=== PATIENT | male | born 1945 | race Caucasian/White ===

== ENCOUNTER → 2018-07-30 | Outpatient (CLI) | payer MEDICARE, OTHER | END | disposition home or self-care (01) | LOC: CFH 07:13 | DX: Z87.891 Personal history of nicotine dependence (principal) | CPT/HCPCS: 76706 ==

== ENCOUNTER 2019-07-22 04:06 | Inpatient (IN) | payer MEDICARE, OTHER ==
[~2019-07-22] VITALS: Ht 180.3 cm; Wt 54.9 kg
[2019-07-22] MEDS ORDERED: ONDANSETRON 2MG/ML, 2ML ONE (05:02)
[2019-07-22] MEDS ORDERED: FAMOTIDINE 20 MG/2 ML ONE (05:03)
[2019-07-22] MEDS ORDERED: MORPHINE SULFATE 4 MG/ML, 1ML ONE ×2 (05:03→06:13)
[2019-07-22] MEDS: MORPHINE SULFATE 4 MG/ML, 1ML IVPush PRN ×2 (05:16→06:21)
[2019-07-22] MEDS ORDERED: ONDANSETRON 2MG/ML, 2ML IVPush ONE (05:30)
[2019-07-22] MEDS ORDERED: FAMOTIDINE 20 MG/2 ML IV ONE (05:30)
[2019-07-22] MEDS ORDERED: SODIUM CHLORIDE FLUSH 10ML SYR IVF ONE (05:30)
[2019-07-22 05:37] LABS: MEAN CORPUSCULAR HEMOGLOBIN 31.1 pg (27.5-34.5); MEAN CORPUSCULAR HGB CONC 33.2 g/dL (33.2-36.2); MEAN CORPUSCULAR VOLUME 93.5 fL (81-97); MEAN PLATELET VOLUME 8.1 fL (7.4-10.4); PLATELET COUNT 320 x10^3/uL (130-400); RED BLOOD COUNT 5.85 x10^6/uL (4.38-5.82); RED CELL DISTRIBUTION WIDTH 12.5 % (9.4-14.8)
[2019-07-22 05:42] LABS: ALANINE AMINOTRANSFERASE 43 U/L (12-78); ALBUMIN 3.8 g/dL (3.4-5.0); ANION GAP 9 mmol/L (5-15); CALCIUM 9.3 mg/dL (8.5-10.1); CHLORIDE 109 mmol/L (98-107); CREATININE 1.42 mg/dL (0.7-1.3)
[2019-07-22 05:47] LABS: ALKALINE PHOSPHATASE 76 U/L (45-117); BILIRUBIN,TOTAL 0.7 mg/dL (0.2-1.0); TOTAL PROTEIN 7.8 g/dL (6.4-8.2); TROPONIN I < 0.015 ng/mL (0.000-0.045)
--- NOTE | 2019-07-22 06:22 | NUR ---
PT HARD OF HEARING, PT FORGOT HEARING AIDS. PT RESTING IN BED WITH AT PT SIDE.
[2019-07-22] MEDS ORDERED: OMNIPAQUE 350 MG/ML, 100ML BOTTLE ONE (06:25)
[2019-07-22] MEDS ORDERED: HYDROmorphone 1 MG/ML, 1ML INJ IVPush PRN (06:30)
[2019-07-22] MEDS ORDERED: SODIUM CHLORIDE 0.9% 1,000ML IVBOLUS ONE ×2 (06:30→07:30)
[2019-07-22] MEDS ORDERED: PANT40TA5 PO (06:32)
[2019-07-22] MEDS ORDERED: HYDROmorphone 1 MG/ML, 1ML INJ ONE (06:35)
[2019-07-22] MEDS ORDERED: LORazepam 2 MG/ML, 1ML ONE (06:35)
[2019-07-22] MEDS ORDERED: LORazepam 2 MG/ML, 1ML IVPush ONE (07:00)
[2019-07-22] MEDS ORDERED: HYDROmorphone 1 MG/ML, 1ML INJ IV ONE (07:00)
--- NOTE | 2019-07-22 07:05 | NUR ---
LATE ENTRY FOR 0645 RECEIVED BEDSIDE REPORT FROM JON DAVID. PT SLEEPING ON [facility]. [place]. BEDSIDE. VSS.
[2019-07-22] MEDS ORDERED: SODIUM CHLORIDE 0.9% 1,000 ML IV SCH (07:42)
[2019-07-22] MEDS ORDERED: THIAMINE 200 MG in SODIUM CHLORIDE 0.9% 50 ML IV ONE (08:00)
[2019-07-22 08:19] LABS: CHOL/HDL RATIO 4.6; LDL/HDL RATIO 3.1 (0.5-3.0)
--- NOTE | 2019-07-22 08:20 | NUR ---
LATE ENTRY 0810 PT TAKEN TO MRI.
--- NOTE | 2019-07-22 08:59 | NUR ---
Break RN: Pt back from MRI
--- NOTE | 2019-07-22 09:26 | NUR ---
PT RESTING ON [facility]. IVF INFUSING AT THIS TIME. WILL CALL PRIMARY RN FOR REPORT, ATTEMPT #2
--- NOTE | 2019-07-22 09:39 | NUR ---
REPORT TO JON SHEA. ALL QUESTIONS ANSWERED.
--- NOTE | 2019-07-22 09:44 | NUR ---
PT TRANSFERRED TO FLOOR. PT LEFT WITH ALL PERSONAL BELONGINGS.
[2019-07-22 09:58] VITALS: BP 163/108
[2019-07-22] MEDS ORDERED: POTASSIUM CHLORIDE 20 MEQ, MAGNESIUM SULFATE 1 GM, MVI ADULT 10 ML, THIAMINE 200 MG, FO... IV SCH (10:00)
[2019-07-22] MEDS: HYDROmorphone 2 MG/ML, 1ML IVPush PRN ×5 (10:13→23:43)
[2019-07-22 10:50] VITALS: BP 154/105
[2019-07-22] MEDS ORDERED: PHARMACY MAY ADJ FOR RENAL FX MC PRN (11:30)
[2019-07-22 12:08] VITALS: BP 141/101
[2019-07-22] MEDS: PIPERACILLIN/TAZO/PMX 3.375GM 50 ML IV SCH ×2 (12:19→18:11)
[2019-07-22] MEDS ORDERED: LACTATED RINGERS 1,000 ML IVBOLUS ONE (12:30)
[2019-07-22] MEDS ORDERED: LACTATED RINGERS 1,000 ML IV SCH (12:30)
[2019-07-22] MEDS ORDERED: PROPOFOL 10 MG/ML, 100ML IV ONE (15:59)
[2019-07-22] MEDS ORDERED: ETOMIDATE 40 MG/20 ML ONE (15:59)
[2019-07-22] MEDS ORDERED: SUCCINYLCHOLINE 20 MG/ML, 10ML ONE (15:59)
[2019-07-22 16:26] LABS: ANION GAP 11 mmol/L (5-15); CALCIUM 8.1 mg/dL (8.5-10.1); CHLORIDE 114 mmol/L (98-107); CREATININE 1.52 mg/dL (0.7-1.3)
[2019-07-22 17:28] LABS: MEAN CORPUSCULAR HEMOGLOBIN 31.6 pg (27.5-34.5); MEAN CORPUSCULAR VOLUME 93.1 fL (81-97); MEAN PLATELET VOLUME 7.7 fL (7.4-10.4); PLATELET COUNT 243 x10^3/uL (130-400); RED BLOOD COUNT 6.24 x10^6/uL (4.38-5.82); RED CELL DISTRIBUTION WIDTH 12.9 % (9.4-14.8)
[2019-07-22 17:31] LABS: MD YES
[2019-07-22 20:01] VITALS: BP 132/97
[2019-07-22] MEDS: ONDANSETRON 2MG/ML, 2ML IVPush PRN (20:45)
[2019-07-22 20:58] LABS: BAND#(MANUAL) 5.62 x10^3/uL; BANDS%(MANUAL) 48 % (0-7); LYMPH#(MANUAL) 0.35 x10^3/uL (1-3.4); LYMPHS% (MANUAL) 3 % (22-44); METAMYELOCYTES# (MANUAL) 0.12 x10^3/uL (0-0); METAMYELOCYTES% (MANUAL) 1 % (0-1); MONOS#(MANUAL) 0.23 x10^3/uL (0.3-2.7); MONOS% (MANUAL) 2 % (2-9); SEG#(MANUAL) 5.38 x10^3/uL (1.8-6.8); SEGS% (MANUAL) 46 % (42-75)
[2019-07-22 20:59] LABS: <PLATELET ESTIMATE> ADEQUATE; <PLT MORPHOLOGY> NORMAL PLT MORPH; <RBC MORPHOLOGY> NORMAL
[2019-07-22] MEDS: SODIUM BICARBONATE 8.4% 150 MEQ in DEXTROSE 5% 1,000 ML IV SCH (21:35)
[2019-07-23] MEDS: PIPERACILLIN/TAZO/PMX 3.375GM 50 ML IV SCH ×4 (00:11→18:00)
[2019-07-23] MEDS: SODIUM BICARBONATE 8.4% 150 MEQ in DEXTROSE 5% 1,000 ML IV SCH ×4 (03:58→21:41)
[2019-07-23] MEDS: HYDROmorphone 2 MG/ML, 1ML IVPush PRN ×6 (04:06→21:33)
[2019-07-23 04:32] LABS: MEAN CORPUSCULAR HEMOGLOBIN 31.3 pg (27.5-34.5); MEAN CORPUSCULAR HGB CONC 32.9 g/dL (33.2-36.2); MEAN PLATELET VOLUME 8.3 fL (7.4-10.4); PLATELET COUNT 210 x10^3/uL (130-400); RED BLOOD COUNT 5.93 x10^6/uL (4.38-5.82); RED CELL DISTRIBUTION WIDTH 12.8 % (9.4-14.8)
[2019-07-23 04:44] LABS: ALANINE AMINOTRANSFERASE 49 U/L (12-78); ALBUMIN 2.3 g/dL (3.4-5.0); ANION GAP 8 mmol/L (5-15); CHLORIDE 112 mmol/L (98-107); CREATININE 1.64 mg/dL (0.7-1.3)
[2019-07-23 04:48] LABS: ALKALINE PHOSPHATASE 50 U/L (45-117); BILIRUBIN,TOTAL 0.6 mg/dL (0.2-1.0); TOTAL PROTEIN 5.6 g/dL (6.4-8.2)
[2019-07-23 05:00] VITALS: BP 126/93
[2019-07-23 05:14] LABS: MD YES
[2019-07-23 05:17] LABS: <PLATELET ESTIMATE> ADEQUATE; <PLT MORPHOLOGY> NORMAL PLT MORPH; <RBC MORPHOLOGY> NORMAL; BAND#(MANUAL) 3.54 x10^3/uL; BANDS%(MANUAL) 35 % (0-7); LYMPH#(MANUAL) 1.01 x10^3/uL (1-3.4); LYMPHS% (MANUAL) 10 % (22-44); MONOS#(MANUAL) 0.81 x10^3/uL (0.3-2.7); MONOS% (MANUAL) 8 % (2-9); SEG#(MANUAL) 4.75 x10^3/uL (1.8-6.8); SEGS% (MANUAL) 47 % (42-75)
[2019-07-23] MEDS ORDERED: REGULAR INSULIN 100 UNITS in SODIUM CHLORIDE 0.9% 99 ML IV PRN (07:00)
[2019-07-23] MEDS: PANTOPRAZOLE 40 MG IV IVPush SCH (08:44)
[2019-07-23] MEDS ORDERED: SODIUM PHOSPHATE 20 MMOL in SODIUM CHLORIDE 0.9% 500 ML IV ONE (09:30)
[2019-07-23] MEDS ORDERED: LACTATED RINGERS 1,000 ML IV SCH (12:30)
[2019-07-23] MEDS ORDERED: LACTATED RINGERS 1,000 ML IVBOLUS ONE (13:30)
[2019-07-23] MEDS: HEPARIN 5,000 UNITS/ML, 1ML SQ SCH ×2 (13:39→21:37)
[2019-07-23] MEDS ORDERED: FUROSEMIDE 20 MG/2 ML IV ONE (17:30)
[2019-07-24] MEDS: PIPERACILLIN/TAZO/PMX 3.375GM 50 ML IV SCH ×3 (00:06→12:05)
[2019-07-24] MEDS: HYDROmorphone 2 MG/ML, 1ML IVPush PRN ×5 (00:31→20:27)
[2019-07-24] MEDS: SODIUM BICARBONATE 8.4% 150 MEQ in DEXTROSE 5% 1,000 ML IV SCH (03:38)
[2019-07-24 04:37] LABS: ANION GAP 6 mmol/L (5-15); CHLORIDE 102 mmol/L (98-107); CREATININE 1.64 mg/dL (0.7-1.3)
[2019-07-24 04:55] LABS: CALCIUM 5.8 mg/dL (8.5-10.1)
[2019-07-24 05:00] VITALS: BP 133/88
[2019-07-24] MEDS ORDERED: CALCIUM GLUCONATE 9.2 MEQ in SODIUM CHLORIDE 0.9% 100 ML IV ONE (05:30)
[2019-07-24] MEDS ORDERED: CALCIUM GLUCONATE 9.2 MEQ in SODIUM CHLORIDE 0.9% 100 ML IV PRN (05:30)
[2019-07-24] MEDS: HEPARIN 5,000 UNITS/ML, 1ML SQ SCH ×3 (05:52→20:22)
[2019-07-24] MEDS: PANTOPRAZOLE 40 MG IV IVPush SCH (08:15)
[2019-07-24] MEDS: POTASSIUM CHLORIDE 20 MEQ TAB.ER.PRT PO SCH ×2 (08:16→16:04)
[2019-07-24] MEDS: LACTATED RINGERS 1,000 ML IV SCH ×2 (08:30→16:05)
[2019-07-24] MEDS: THIAMINE 200 MG in SODIUM CHLORIDE 0.9% 50 ML IV SCH (09:37)
[2019-07-24 13:29] LABS: MD YES
[2019-07-24 13:31] LABS: <PLATELET ESTIMATE> ADEQUATE; BAND#(MANUAL) 4.52 x10^3/uL; BANDS%(MANUAL) 26 % (0-7); LYMPH#(MANUAL) 0.52 x10^3/uL (1-3.4); LYMPHS% (MANUAL) 3 % (22-44); MONOS#(MANUAL) 0.52 x10^3/uL (0.3-2.7); MONOS% (MANUAL) 3 % (2-9); PMNS WITH VACUOLES 1+; SEG#(MANUAL) 11.83 x10^3/uL (1.8-6.8); SEGS% (MANUAL) 68 % (42-75)
[2019-07-24 13:32] LABS: <PLT MORPHOLOGY> NORMAL PLT MORPH; <RBC MORPHOLOGY> NORMAL
[2019-07-24] MEDS: CALCIUM GLUCONATE 4.6 MEQ in SODIUM CHLORIDE 0.9% 100 ML IV PRN (15:20)
[2019-07-24] MEDS ORDERED: HYDROmorphone 1 MG/ML, 1ML INJ ONE (20:13)
[2019-07-25] MEDS: LACTATED RINGERS 1,000 ML IV SCH (00:35)
[2019-07-25] MEDS ORDERED: HYDROmorphone 1 MG/ML, 1ML INJ ONE ×2 (00:41→04:14)
[2019-07-25] MEDS: CALCIUM GLUCONATE 4.6 MEQ in SODIUM CHLORIDE 0.9% 100 ML IV PRN ×4 (00:56→21:17)
[2019-07-25] MEDS: HYDROmorphone 2 MG/ML, 1ML IVPush PRN ×7 (00:56→23:45)
[2019-07-25] MEDS: ONDANSETRON 2MG/ML, 2ML IVPush PRN (04:19)
[2019-07-25 04:45] LABS: ALBUMIN 1.7 g/dL (3.4-5.0); ANION GAP 8 mmol/L (5-15); CHLORIDE 104 mmol/L (98-107); CREATININE 1.49 mg/dL (0.7-1.3)
[2019-07-25 04:48] LABS: CALCIUM 5.9 mg/dL (8.5-10.1)
[2019-07-25 05:09] LABS: MEAN CORPUSCULAR HEMOGLOBIN 31.8 pg (27.5-34.5); MEAN CORPUSCULAR HGB CONC 33.9 g/dL (33.2-36.2); MEAN PLATELET VOLUME 8.8 fL (7.4-10.4); PLATELET COUNT 219 x10^3/uL (130-400); RED CELL DISTRIBUTION WIDTH 12.9 % (9.4-14.8)
[2019-07-25 05:16] LABS: MD YES
[2019-07-25 05:17] LABS: <PLATELET ESTIMATE> ADEQUATE; <PLT MORPHOLOGY> NORMAL PLT MORPH; <RBC MORPHOLOGY> NORMAL; BAND#(MANUAL) 2.36 x10^3/uL; BANDS%(MANUAL) 19 % (0-7); LYMPH#(MANUAL) 0.37 x10^3/uL (1-3.4); LYMPHS% (MANUAL) 3 % (22-44); METAMYELOCYTES# (MANUAL) 0.12 x10^3/uL (0-0); METAMYELOCYTES% (MANUAL) 1 % (0-1); MONOS#(MANUAL) 0.99 x10^3/uL (0.3-2.7); MONOS% (MANUAL) 8 % (2-9); SEG#(MANUAL) 8.56 x10^3/uL (1.8-6.8); SEGS% (MANUAL) 69 % (42-75)
[2019-07-25] MEDS: HEPARIN 5,000 UNITS/ML, 1ML SQ SCH ×3 (05:30→20:12)
[2019-07-25 06:00] VITALS: BP 139/82
[2019-07-25] MEDS ORDERED: ALBUMIN HUMAN 25% 100 ML IV SCH (07:00)
[2019-07-25] MEDS ORDERED: POTASSIUM CHLORIDE 10% 40 MEQ/30 ML UDC PO ONE (07:00)
[2019-07-25] MEDS: PANTOPRAZOLE 40 MG IV IVPush SCH (07:58)
[2019-07-25] MEDS: FUROSEMIDE 20 MG/2 ML IV SCH ×2 (07:58→17:42)
[2019-07-25] MEDS: POTASSIUM CHLORIDE 10% 40 MEQ/30 ML UDC PO SCH ×2 (09:30→20:11)
[2019-07-25] MEDS: THIAMINE 200 MG in SODIUM CHLORIDE 0.9% 50 ML IV SCH (09:53)
--- NOTE | 2019-07-25 11:08 | NUR ---
Vital AF 1.2 @ 80 ml/hour
[2019-07-25] MEDS: ALBUMIN HUMAN 25% 100 ML IV SCH ×2 (15:58→22:52)
[2019-07-25] MEDS: INSULIN LISPRO 100 UNITS/ML, PEN SQ-INSULIN SCH ×2 (15:59→20:19)
[2019-07-26] MEDS: HYDROmorphone 2 MG/ML, 1ML IVPush PRN ×5 (01:48→22:11)
[2019-07-26] MEDS: HEPARIN 5,000 UNITS/ML, 1ML SQ SCH ×3 (03:33→19:55)
[2019-07-26 04:13] LABS: BASOPHILS % (AUTO) 0 % (0-1); EOSINOPHILS % (AUTO) 0 % (1-7); LYMPHOCYTES # (AUTO) 0.38 x10^3/uL (1-3.4); LYMPHOCYTES % (AUTO) 5 % (22-44); MD NO; MEAN CORPUSCULAR HEMOGLOBIN 31.6 pg (27.5-34.5); MEAN CORPUSCULAR HGB CONC 33.9 g/dL (33.2-36.2); MEAN CORPUSCULAR VOLUME 93.2 fL (81-97); MEAN PLATELET VOLUME 7.7 fL (7.4-10.4); MONOCYTES # (AUTO) 0.34 x10^3/uL (0.2-0.8); MONOCYTES % (AUTO) 5 % (2-9); NEUTROPHILS # (AUTO) 6.65 x10^3/uL (1.8-6.8); NEUTROPHILS % (AUTO) 90 % (42-75); PLATELET COUNT 148 x10^3/uL (130-400); RED BLOOD COUNT 3.87 x10^6/uL (4.38-5.82); RED CELL DISTRIBUTION WIDTH 13.4 % (9.4-14.8)
[2019-07-26 04:24] LABS: ALANINE AMINOTRANSFERASE 25 U/L (12-78); ALBUMIN 2.4 g/dL (3.4-5.0); ANION GAP 4 mmol/L (5-15); CALCIUM 6.8 mg/dL (8.5-10.1); CHLORIDE 110 mmol/L (98-107); CREATININE 1.17 mg/dL (0.7-1.3)
[2019-07-26 04:26] LABS: ALKALINE PHOSPHATASE 47 U/L (45-117); BILIRUBIN,TOTAL 1.3 mg/dL (0.2-1.0); TOTAL PROTEIN 5.3 g/dL (6.4-8.2)
[2019-07-26] MEDS: CALCIUM GLUCONATE 4.6 MEQ in SODIUM CHLORIDE 0.9% 100 ML IV PRN ×3 (05:13→23:44)
[2019-07-26] MEDS: INSULIN LISPRO 100 UNITS/ML, PEN SQ-INSULIN SCH ×4 (07:00→20:55)
[2019-07-26] MEDS: FUROSEMIDE 20 MG/2 ML IV SCH ×2 (07:45→16:49)
[2019-07-26] MEDS: PANTOPRAZOLE 40 MG IV IVPush SCH (07:45)
[2019-07-26] MEDS: POTASSIUM CHLORIDE 20 MEQ TAB.ER.PRT PO SCH ×2 (07:46→16:49)
[2019-07-26] MEDS: THIAMINE 200 MG in SODIUM CHLORIDE 0.9% 50 ML IV SCH (08:56)
[2019-07-26] MEDS: OXYcodone IR 5MG TABLET PO PRN ×3 (08:56→19:56)
[2019-07-26 10:32] VITALS: BP 145/86
[2019-07-26 12:51] VITALS: BP 168/94
[2019-07-26 20:17] VITALS: BP 135/79
[2019-07-27 01:25] VITALS: BP 147/84
[2019-07-27] MEDS: HYDROmorphone 2 MG/ML, 1ML IVPush PRN ×2 (02:39→10:14)
[2019-07-27] MEDS: HEPARIN 5,000 UNITS/ML, 1ML SQ SCH ×3 (04:25→20:03)
[2019-07-27 05:28] LABS: CHLORIDE 109 mmol/L (98-107)
[2019-07-27 05:39] LABS: ANION GAP 6 mmol/L (5-15); CALCIUM 7.9 mg/dL (8.5-10.1); CREATININE 1.04 mg/dL (0.7-1.3)
[2019-07-27] MEDS: CALCIUM GLUCONATE 4.6 MEQ in SODIUM CHLORIDE 0.9% 100 ML IV PRN ×3 (05:59→19:09)
[2019-07-27] MEDS: INSULIN LISPRO 100 UNITS/ML, PEN SQ-INSULIN SCH ×4 (07:00→20:04)
[2019-07-27 08:00] VITALS: BP 139/84
[2019-07-27] MEDS: FUROSEMIDE 20 MG/2 ML IV SCH ×2 (08:17→16:15)
[2019-07-27] MEDS: THIAMINE 200 MG in SODIUM CHLORIDE 0.9% 50 ML IV SCH (08:17)
[2019-07-27] MEDS: PANTOPRAZOLE 40 MG IV IVPush SCH (08:17)
[2019-07-27] MEDS: POTASSIUM CHLORIDE 20 MEQ TAB.ER.PRT PO SCH ×2 (08:18→16:15)
[2019-07-27] MEDS: OXYcodone IR 5MG TABLET PO PRN ×2 (08:18→16:32)
[2019-07-27 14:49] VITALS: BP 111/70
[2019-07-27 20:21] VITALS: BP 131/79
[2019-07-28] MEDS: CALCIUM GLUCONATE 4.6 MEQ in SODIUM CHLORIDE 0.9% 100 ML IV PRN ×4 (01:12→23:36)
[2019-07-28] MEDS: OXYcodone IR 5MG TABLET PO PRN ×3 (01:16→15:06)
[2019-07-28 01:29] VITALS: BP 154/90
[2019-07-28] MEDS: HEPARIN 5,000 UNITS/ML, 1ML SQ SCH ×3 (04:20→21:40)
[2019-07-28 05:18] LABS: ALBUMIN 1.9 g/dL (3.4-5.0); ANION GAP 8 mmol/L (5-15); CALCIUM 7.6 mg/dL (8.5-10.1); CHLORIDE 107 mmol/L (98-107)
[2019-07-28 05:21] LABS: ALANINE AMINOTRANSFERASE 36 U/L (12-78); ALKALINE PHOSPHATASE 61 U/L (45-117); BILIRUBIN,TOTAL 1.3 mg/dL (0.2-1.0); CREATININE 0.99 mg/dL (0.7-1.3); TOTAL PROTEIN 5.3 g/dL (6.4-8.2)
[2019-07-28 06:23] VITALS: BP 142/88
[2019-07-28] MEDS: INSULIN LISPRO 100 UNITS/ML, PEN SQ-INSULIN SCH ×4 (07:00→21:00)
[2019-07-28] MEDS: PANTOPRAZOLE 40 MG IV IVPush SCH (08:20)
[2019-07-28] MEDS: FUROSEMIDE 20 MG/2 ML IV SCH ×2 (08:20→17:52)
[2019-07-28] MEDS: THIAMINE 200 MG in SODIUM CHLORIDE 0.9% 50 ML IV SCH (08:35)
[2019-07-28 12:07] VITALS: BP 121/77
[2019-07-28 19:09] VITALS: BP 127/81
[2019-07-29 00:52] VITALS: BP 136/87
[2019-07-29] MEDS: INSULIN LISPRO 100 UNITS/ML, PEN SQ-INSULIN SCH ×4 (04:00→19:55)
[2019-07-29] MEDS: HEPARIN 5,000 UNITS/ML, 1ML SQ SCH ×3 (04:38→19:49)
[2019-07-29] MEDS: HYDROmorphone 2 MG/ML, 1ML IVPush PRN ×3 (04:38→19:49)
[2019-07-29 05:03] LABS: ALBUMIN 1.7 g/dL (3.4-5.0); ANION GAP 10 mmol/L (5-15); CALCIUM 7.7 mg/dL (8.5-10.1); CHLORIDE 109 mmol/L (98-107)
[2019-07-29 05:09] LABS: ALANINE AMINOTRANSFERASE 28 U/L (12-78); ALKALINE PHOSPHATASE 61 U/L (45-117); BILIRUBIN,TOTAL 1.3 mg/dL (0.2-1.0); CREATININE 0.95 mg/dL (0.7-1.3)
[2019-07-29] MEDS: CALCIUM GLUCONATE 4.6 MEQ in SODIUM CHLORIDE 0.9% 100 ML IV PRN ×3 (05:58→18:01)
[2019-07-29 06:33] VITALS: BP 126/79
[2019-07-29] MEDS: FUROSEMIDE 20 MG/2 ML IV SCH ×2 (07:54→16:20)
[2019-07-29] MEDS: PANTOPRAZOLE 40 MG IV IVPush SCH (07:54)
[2019-07-29] MEDS: THIAMINE 200 MG in SODIUM CHLORIDE 0.9% 50 ML IV SCH (09:34)
[2019-07-29] MEDS ORDERED: POTASSIUM CHLORIDE 10% 40 MEQ/30 ML UDC PO ONE (12:00)
[2019-07-29 13:37] VITALS: BP 124/75
[2019-07-29 18:48] VITALS: BP 138/64
[2019-07-30] MEDS: HYDROmorphone 2 MG/ML, 1ML IVPush PRN ×4 (00:10→19:55)
[2019-07-30 00:35] VITALS: BP 129/84
[2019-07-30] MEDS: CALCIUM GLUCONATE 4.6 MEQ in SODIUM CHLORIDE 0.9% 100 ML IV PRN ×2 (01:06→06:37)
[2019-07-30] MEDS: INSULIN LISPRO 100 UNITS/ML, PEN SQ-INSULIN SCH ×4 (04:00→22:14)
[2019-07-30] MEDS: HEPARIN 5,000 UNITS/ML, 1ML SQ SCH ×3 (05:04→19:50)
[2019-07-30 05:21] LABS: MEAN CORPUSCULAR HEMOGLOBIN 30.6 pg (27.5-34.5); MEAN CORPUSCULAR HGB CONC 32.9 g/dL (33.2-36.2); MEAN CORPUSCULAR VOLUME 92.9 fL (81-97); MEAN PLATELET VOLUME 8.3 fL (7.4-10.4); PLATELET COUNT 328 x10^3/uL (130-400); RED CELL DISTRIBUTION WIDTH 13.4 % (9.4-14.8)
[2019-07-30 05:25] LABS: CHLORIDE 113 mmol/L (98-107)
[2019-07-30 05:30] LABS: ALANINE AMINOTRANSFERASE 24 U/L (12-78); ALBUMIN 1.6 g/dL (3.4-5.0); ALKALINE PHOSPHATASE 65 U/L (45-117); ANION GAP 10 mmol/L (5-15); BILIRUBIN,TOTAL 1.3 mg/dL (0.2-1.0); CREATININE 1.05 mg/dL (0.7-1.3); TOTAL PROTEIN 5.2 g/dL (6.4-8.2)
[2019-07-30 05:40] LABS: MD YES
[2019-07-30 05:42] LABS: <PLATELET ESTIMATE> ADEQUATE; <PLT MORPHOLOGY> NORMAL PLT MORPH; <RBC MORPHOLOGY> NORMAL; BAND#(MANUAL) 1.32 x10^3/uL; BANDS%(MANUAL) 7 % (0-7); LYMPH#(MANUAL) 0.95 x10^3/uL (1-3.4); LYMPHS% (MANUAL) 5 % (22-44); MONOS#(MANUAL) 0.19 x10^3/uL (0.3-2.7); MONOS% (MANUAL) 1 % (2-9); SEG#(MANUAL) 16.44 x10^3/uL (1.8-6.8); SEGS% (MANUAL) 87 % (42-75); TOXIC GRAN 1+
[2019-07-30 07:24] VITALS: BP 131/81
[2019-07-30] MEDS: PANTOPRAZOLE 40 MG IV IVPush SCH (08:13)
[2019-07-30] MEDS: FUROSEMIDE 20 MG/2 ML IV SCH ×2 (08:13→16:29)
[2019-07-30 11:24] VITALS: BP 126/78
[2019-07-30 13:59] VITALS: BP 133/79
[2019-07-30] MEDS: D5%-0.45NACL+KCL 20MEQ 1,000 ML IV SCH (15:37)
[2019-07-30 18:28] VITALS: BP 133/81
[2019-07-31] MEDS: D5%-0.45NACL+KCL 20MEQ 1,000 ML IV SCH (00:43)
[2019-07-31] MEDS: HYDROmorphone 2 MG/ML, 1ML IVPush PRN ×2 (00:43→08:32)
[2019-07-31 00:44] VITALS: BP 130/79
[2019-07-31] MEDS: HEPARIN 5,000 UNITS/ML, 1ML SQ SCH ×3 (03:46→20:25)
[2019-07-31] MEDS: INSULIN LISPRO 100 UNITS/ML, PEN SQ-INSULIN SCH ×4 (03:50→20:32)
[2019-07-31 05:24] LABS: BASOPHILS # (AUTO) 0.01 x10^3/uL (0-0.1); BASOPHILS % (AUTO) 0 % (0-1); EOSINOPHILS # (AUTO) 0.01 x10^3/uL (0-0.4); EOSINOPHILS % (AUTO) 0 % (1-7); LYMPHOCYTES # (AUTO) 0.65 x10^3/uL (1-3.4); LYMPHOCYTES % (AUTO) 4 % (22-44); MD NO; MEAN CORPUSCULAR HEMOGLOBIN 30.7 pg (27.5-34.5); MEAN CORPUSCULAR HGB CONC 32.9 g/dL (33.2-36.2); MEAN CORPUSCULAR VOLUME 93.4 fL (81-97); MEAN PLATELET VOLUME 8.2 fL (7.4-10.4); MONOCYTES # (AUTO) 0.28 x10^3/uL (0.2-0.8); MONOCYTES % (AUTO) 2 % (2-9); NEUTROPHILS % (AUTO) 94 % (42-75); PLATELET COUNT 388 x10^3/uL (130-400); RED BLOOD COUNT 3.88 x10^6/uL (4.38-5.82); RED CELL DISTRIBUTION WIDTH 14.1 % (9.4-14.8)
[2019-07-31 05:34] LABS: ANION GAP 5 mmol/L (5-15); CALCIUM 7.6 mg/dL (8.5-10.1); CHLORIDE 116 mmol/L (98-107)
[2019-07-31 05:35] LABS: CREATININE 1.18 mg/dL (0.7-1.3)
[2019-07-31 06:38] VITALS: BP 133/81
[2019-07-31 07:54] VITALS: BP 121/77
[2019-07-31] MEDS: FUROSEMIDE 20 MG/2 ML IV SCH ×2 (08:38→17:47)
[2019-07-31] MEDS: PANTOPRAZOLE 40 MG IV IVPush SCH (08:42)
[2019-07-31] MEDS: POTASSIUM CHLORIDE 20 MEQ in DEXTROSE 5% 1,000 ML IV SCH ×2 (08:44→20:24)
--- NOTE | 2019-07-31 12:13 | NUR ---
OT eval completed. As of today's OT eval, pt will benefit fr SNF for continued therapy. Addendum: 07/31/19 at 1214 by AMNA VELASQUEZ OT Amended: Links added.
[2019-07-31 13:05] VITALS: BP 124/78
[2019-07-31] MEDS: ONDANSETRON 2MG/ML, 2ML IVPush PRN (16:17)
[2019-07-31 18:22] VITALS: BP 126/78
[2019-08-01 00:31] VITALS: BP 129/82
[2019-08-01] MEDS: POTASSIUM CHLORIDE 20 MEQ in DEXTROSE 5% 1,000 ML IV SCH ×2 (01:15→10:21)
[2019-08-01] MEDS: OXYcodone IR 5MG TABLET PO PRN (01:22)
[2019-08-01] MEDS: HEPARIN 5,000 UNITS/ML, 1ML SQ SCH ×3 (04:35→22:17)
[2019-08-01] MEDS: INSULIN LISPRO 100 UNITS/ML, PEN SQ-INSULIN SCH ×4 (04:44→22:17)
[2019-08-01 07:04] VITALS: BP 117/75
[2019-08-01] MEDS: PANTOPRAZOLE 40 MG IV IVPush SCH (08:53)
[2019-08-01] MEDS: FUROSEMIDE 20 MG/2 ML IV SCH ×2 (08:54→16:45)
[2019-08-01 09:26] LABS: MEAN CORPUSCULAR HEMOGLOBIN 30.9 pg (27.5-34.5); MEAN CORPUSCULAR HGB CONC 32.9 g/dL (33.2-36.2); MEAN CORPUSCULAR VOLUME 94.2 fL (81-97); MEAN PLATELET VOLUME 7.9 fL (7.4-10.4); PLATELET COUNT 462 x10^3/uL (130-400); RED BLOOD COUNT 4.17 x10^6/uL (4.38-5.82); RED CELL DISTRIBUTION WIDTH 13.9 % (9.4-14.8)
[2019-08-01 09:37] LABS: ANION GAP 8 mmol/L (5-15); CALCIUM 7.8 mg/dL (8.5-10.1); CHLORIDE 115 mmol/L (98-107); CREATININE 1.38 mg/dL (0.7-1.3)
[2019-08-01 10:00] LABS: MD YES
[2019-08-01 10:02] LABS: <PLATELET ESTIMATE> INCREASED; <PLT MORPHOLOGY> NORMAL PLT MORPH; BAND#(MANUAL) 1.75 x10^3/uL; BANDS%(MANUAL) 11 % (0-7); LYMPH#(MANUAL) 0.32 x10^3/uL (1-3.4); LYMPHS% (MANUAL) 2 % (22-44); MONOS#(MANUAL) 0.16 x10^3/uL (0.3-2.7); MONOS% (MANUAL) 1 % (2-9); MYELOCYTES# (MANUAL) 0.16 x10^3/uL (0-0); MYELOCYTES% (MANUAL) 1 % (0-0); SEG#(MANUAL) 13.52 x10^3/uL (1.8-6.8); SEGS% (MANUAL) 85 % (42-75); TOXIC GRAN 1+
[2019-08-01 10:03] LABS: POLYCHROMASIA 1+
[2019-08-01 13:09] VITALS: BP 119/76
[2019-08-01 19:25] VITALS: BP 109/72
[2019-08-01] MEDS: HYDROmorphone 2 MG/ML, 1ML IVPush PRN (21:17)
[2019-08-02 01:36] VITALS: BP 124/85
[2019-08-02] MEDS: HYDROmorphone 2 MG/ML, 1ML IVPush PRN ×2 (04:24→17:43)
[2019-08-02] MEDS: INSULIN LISPRO 100 UNITS/ML, PEN SQ-INSULIN SCH ×4 (04:27→22:18)
[2019-08-02] MEDS: HEPARIN 5,000 UNITS/ML, 1ML SQ SCH ×2 (05:55→14:00)
[2019-08-02] MEDS ORDERED: POTASSIUM CHLORIDE 20 MEQ in DEXTROSE 5% 1,000 ML IV SCH ×2 (07:30→08:30)
[2019-08-02] MEDS: PANTOPRAZOLE 40 MG IV IVPush SCH (07:53)
[2019-08-02] MEDS: FUROSEMIDE 20 MG/2 ML IV SCH (07:53)
[2019-08-02 08:52] VITALS: BP 111/75
[2019-08-02 09:28] LABS: MEAN CORPUSCULAR HEMOGLOBIN 31.2 pg (27.5-34.5); MEAN CORPUSCULAR HGB CONC 32.7 g/dL (33.2-36.2); MEAN CORPUSCULAR VOLUME 95.3 fL (81-97); MEAN PLATELET VOLUME 8.1 fL (7.4-10.4); PLATELET COUNT 404 x10^3/uL (130-400); RED BLOOD COUNT 4.25 x10^6/uL (4.38-5.82); RED CELL DISTRIBUTION WIDTH 14.6 % (9.4-14.8)
[2019-08-02 09:37] LABS: ANION GAP 6 mmol/L (5-15); CALCIUM 7.7 mg/dL (8.5-10.1); CHLORIDE 114 mmol/L (98-107); CREATININE 1.72 mg/dL (0.7-1.3)
[2019-08-02] MEDS: METRONIDAZOLE PMX 500MG/100ML 100 ML IV SCH ×2 (09:42→21:32)
[2019-08-02 09:56] LABS: MD YES
[2019-08-02 10:01] LABS: BAND#(MANUAL) 0.63 x10^3/uL; BANDS%(MANUAL) 4 % (0-7); LYMPH#(MANUAL) 0.31 x10^3/uL (1-3.4); LYMPHS% (MANUAL) 2 % (22-44); MONOS#(MANUAL) 0.16 x10^3/uL (0.3-2.7); MONOS% (MANUAL) 1 % (2-9); SEGS% (MANUAL) 93 % (42-75)
[2019-08-02 10:02] LABS: <PLATELET ESTIMATE> INCREASED; <PLT MORPHOLOGY> NORMAL PLT MORPH; POLYCHROMASIA 1+
[2019-08-02] MEDS: CEFEPIME 2 GM in DEXTROSE 5% 100 ML IV SCH ×2 (10:30→23:17)
[2019-08-02] MEDS ORDERED: OMNIPAQUE 350 MG/ML, 100ML BOTTLE ONE (14:48)
[2019-08-02 15:09] VITALS: BP 109/72
[2019-08-02 16:31] VITALS: BP 114/76
[2019-08-02] MEDS ORDERED: MORPHINE SULFATE 4 MG/ML, 1ML ONE (17:22)
[2019-08-02] MEDS ORDERED: LACTULOSE 20 GM/30 ML UDC NG PRN (18:00)
[2019-08-02] MEDS ORDERED: PHARMACY MAY ADJ FOR RENAL FX MC SCH (18:00)
[2019-08-02] MEDS ORDERED: SENNA 176 MG/5 ML ORAL SOL NG PRN (18:00)
[2019-08-02] MEDS ORDERED: HEPARIN 5,000 UNITS/ML, 1ML IV ONE (18:00)
[2019-08-02] MEDS ORDERED: DEXTROSE 50%, 50ML SYRINGE IVPush PRN (18:00)
[2019-08-02] MEDS ORDERED: LIDOCAINE-MPF 1%, 2ML ENDO PRN (18:00)
[2019-08-02] MEDS ORDERED: GLUCAGON 1 MG IM PRN (18:00)
[2019-08-02] MEDS ORDERED: SENNA/DOCUSATE TABLET NG PRN (18:00)
[2019-08-02] MEDS ORDERED: BISACODYL 10 MG SUPP PR PRN (18:00)
[2019-08-02] MEDS ORDERED: DEXTROSE 4 GM TAB.CHEW PO PRN (18:00)
[2019-08-02] MEDS: HEPARIN 25,000 UNITS/250ML PMX 250 ML IV PRN (18:33)
[2019-08-02] MEDS: ALBUTEROL/IPRATROPIUM 2.5MG/0.5MG, 3 ML INLINE SCH ×2 (18:47→22:12)
[2019-08-02] MEDS ORDERED: LACTATED RINGERS 500 ML IVBOLUS ONE (19:00)
[2019-08-02] MEDS: SODIUM CHLORIDE FLUSH 10ML SYR IVF SCH (21:39)
[2019-08-02] MEDS ORDERED: ACETAMINOPHEN 650 MG SUPP ONE (22:33)
[2019-08-02] MEDS: ACETAMINOPHEN 650 MG SUPP PR PRN (22:48)
[2019-08-03] MEDS: HEPARIN 5,000 UNITS/ML, 1ML IV PRN (01:30)
[2019-08-03] MEDS: ALBUTEROL/IPRATROPIUM 2.5MG/0.5MG, 3 ML INLINE SCH ×6 (02:24→22:00)
[2019-08-03] MEDS: INSULIN LISPRO 100 UNITS/ML, PEN SQ-INSULIN SCH ×2 (04:28→11:22)
[2019-08-03] MEDS: METRONIDAZOLE PMX 500MG/100ML 100 ML IV SCH ×3 (05:31→21:36)
[2019-08-03] MEDS: ACETAMINOPHEN 650 MG SUPP PR PRN (05:32)
[2019-08-03 05:37] LABS: ALBUMIN 1.3 g/dL (3.4-5.0); ANION GAP 10 mmol/L (5-15); CALCIUM 7.8 mg/dL (8.5-10.1); CHLORIDE 113 mmol/L (98-107)
[2019-08-03 05:41] LABS: ALANINE AMINOTRANSFERASE 32 U/L (12-78); ALKALINE PHOSPHATASE 67 U/L (45-117); BILIRUBIN,TOTAL 1.2 mg/dL (0.2-1.0); CREATININE 2.42 mg/dL (0.7-1.3); TOTAL PROTEIN 5.4 g/dL (6.4-8.2)
[2019-08-03] MEDS ORDERED: POTASSIUM CHLORIDE 20 MEQ in DEXTROSE 5% 1,000 ML IV SCH ×2 (07:30→08:30)
[2019-08-03] MEDS: PANTOPRAZOLE 40 MG IV IVPush SCH (08:03)
[2019-08-03] MEDS: PROPOFOL 100 ML IV PRN ×2 (08:04→17:22)
[2019-08-03] MEDS: SODIUM CHLORIDE FLUSH 10ML SYR IVF SCH ×2 (08:10→19:49)
[2019-08-03 08:12] LABS: MEAN CORPUSCULAR VOLUME 94.2 fL (81-97); MEAN PLATELET VOLUME 9.2 fL (7.4-10.4); PLATELET COUNT 340 x10^3/uL (130-400); RED BLOOD COUNT 4.09 x10^6/uL (4.38-5.82); RED CELL DISTRIBUTION WIDTH 14.9 % (9.4-14.8)
[2019-08-03] MEDS ORDERED: TPN PER PHARMACY MC PRN (09:00)
[2019-08-03 09:42] LABS: MD YES
[2019-08-03 09:47] LABS: BAND#(MANUAL) 0.44 x10^3/uL; BANDS%(MANUAL) 3 % (0-7); EOS#(MANUAL) 0.15 x10^3/uL (0.0-0.4); EOS% (MANUAL) 1 % (1-7); LYMPH#(MANUAL) 1.18 x10^3/uL (1-3.4); LYMPHS% (MANUAL) 8 % (22-44); METAMYELOCYTES# (MANUAL) 0.15 x10^3/uL (0-0); METAMYELOCYTES% (MANUAL) 1 % (0-1); MONOS#(MANUAL) 0.15 x10^3/uL (0.3-2.7); MONOS% (MANUAL) 1 % (2-9); MYELOCYTES# (MANUAL) 0.15 x10^3/uL (0-0); MYELOCYTES% (MANUAL) 1 % (0-0); SEGS% (MANUAL) 85 % (42-75)
[2019-08-03 09:49] LABS: <PLATELET ESTIMATE> ADEQUATE; <PLT MORPHOLOGY> NORMAL PLT MORPH; ANISOCYTOSIS 1+; POLYCHROMASIA 1+; SMUDGE CELLS 1+
[2019-08-03] MEDS: CEFEPIME 2 GM in DEXTROSE 5% 100 ML IV SCH ×2 (10:00→22:19)
[2019-08-03] MEDS ORDERED: LIDOCAINE 1%, 20ML ONE (13:16)
[2019-08-03] MEDS ORDERED: DEXTROSE 10% 500 ML IV PRN (17:00)
[2019-08-03] MEDS ORDERED: AMINO ACID 10% IV SCH (17:00)
[2019-08-03] MEDS ORDERED: [UNRECOGNIZED DRUG - OTHER] IV SCH (17:00)
[2019-08-03] MEDS ORDERED: FILTER, DISP 1.2 MICRON FOR TPN/PVN IV PRN (17:00)
[2019-08-03] MEDS ORDERED: DEXTROSE 50%, 50ML SYRINGE IVPush PRN (17:00)
[2019-08-03] MEDS ORDERED: DEXTROSE 70% IV SCH (17:00)
[2019-08-03] MEDS ORDERED: STERILE WATER IV SCH (17:00)
[2019-08-03] MEDS: INSULIN REGULAR HIGH DOSE Q6H X 48HRS SQ-INSULIN SCH ×2 (17:35→22:25)
[2019-08-03] MEDS: NOREPINEPHRINE 8 MG in SODIUM CHLORIDE 0.9% 242 ML IV PRN (19:49)
[2019-08-04] MEDS: PROPOFOL 100 ML IV PRN ×4 (01:19→21:09)
[2019-08-04] MEDS: ALBUTEROL/IPRATROPIUM 2.5MG/0.5MG, 3 ML INLINE SCH ×2 (02:00→07:18)
[2019-08-04 04:23] LABS: ALBUMIN 1.1 g/dL (3.4-5.0); ANION GAP 9 mmol/L (5-15); CALCIUM 7.4 mg/dL (8.5-10.1); CHLORIDE 112 mmol/L (98-107)
[2019-08-04 04:28] LABS: ALANINE AMINOTRANSFERASE 29 U/L (12-78); ALKALINE PHOSPHATASE 63 U/L (45-117); BILIRUBIN,TOTAL 0.7 mg/dL (0.2-1.0); TOTAL PROTEIN 4.9 g/dL (6.4-8.2)
[2019-08-04 04:30] LABS: PREALBUMIN < 3.0 mg/dL (20.0-40.0)
[2019-08-04] MEDS: HEPARIN 5,000 UNITS/ML, 1ML IV PRN ×3 (04:48→21:27)
[2019-08-04] MEDS: HEPARIN 25,000 UNITS/250ML PMX 250 ML IV PRN (04:50)
[2019-08-04] MEDS: NOREPINEPHRINE 8 MG in SODIUM CHLORIDE 0.9% 242 ML IV PRN ×2 (04:52→20:36)
[2019-08-04] MEDS: METRONIDAZOLE PMX 500MG/100ML 100 ML IV SCH ×4 (05:13→20:36)
[2019-08-04] MEDS: INSULIN REGULAR HIGH DOSE Q6H X 48HRS SQ-INSULIN SCH ×4 (05:13→23:11)
[2019-08-04] MEDS: PANTOPRAZOLE 40 MG IV IVPush SCH (08:46)
[2019-08-04] MEDS: SODIUM CHLORIDE FLUSH 10ML SYR IVF SCH ×2 (08:49→21:11)
[2019-08-04] MEDS ORDERED: SODIUM CHLORIDE 0.9% 2,000 ML IV ONE (09:00)
[2019-08-04] MEDS: LINEZOLID PMX 600MG/300ML 300 ML IV SCH ×2 (09:06→21:30)
[2019-08-04] MEDS ORDERED: SODIUM CHLORIDE 0.9% 1,000 ML IV SCH ×2 (11:00→17:30)
[2019-08-04] MEDS: CEFEPIME 2 GM in DEXTROSE 5% 100 ML IV SCH ×2 (12:08→22:38)
[2019-08-04 14:26] LABS: MD YES; MEAN CORPUSCULAR HEMOGLOBIN 30.9 pg (27.5-34.5); MEAN CORPUSCULAR HGB CONC 32.9 g/dL (33.2-36.2); MEAN PLATELET VOLUME 9.6 fL (7.4-10.4); PLATELET COUNT 202 x10^3/uL (130-400); RED CELL DISTRIBUTION WIDTH 14.5 % (9.4-14.8)
[2019-08-04 14:34] LABS: BANDS%(MANUAL) 25 % (0-7); LYMPH#(MANUAL) 0.27 x10^3/uL (1-3.4); LYMPHS% (MANUAL) 2 % (22-44); METAMYELOCYTES# (MANUAL) 0.14 x10^3/uL (0-0); METAMYELOCYTES% (MANUAL) 1 % (0-1); MONOS#(MANUAL) 0.54 x10^3/uL (0.3-2.7); MONOS% (MANUAL) 4 % (2-9); SEG#(MANUAL) 9.25 x10^3/uL (1.8-6.8); SEGS% (MANUAL) 68 % (42-75)
[2019-08-04 14:36] LABS: POLYCHROMASIA 1+; ROULEAUX 2+
[2019-08-04 14:37] LABS: TOXIC GRAN 2+
[2019-08-04 14:38] LABS: <PLATELET ESTIMATE> ADEQUATE; <PLT MORPHOLOGY> NORMAL PLT MORPH; PMNS WITH VACUOLES 1+
[2019-08-04] MEDS ORDERED: FILTER 0.22 MICRON IV SCH (17:00)
[2019-08-04] MEDS ORDERED: AMINO ACID 10% IV SCH ×3 (17:00)
[2019-08-04] MEDS ORDERED: [UNRECOGNIZED DRUG - OTHER] IV SCH (17:00)
[2019-08-04] MEDS ORDERED: STERILE WATER IV SCH ×3 (17:00)
[2019-08-04] MEDS ORDERED: [UNRECOGNIZED DRUG - OTHER] IV SCH ×2 (17:00)
[2019-08-04] MEDS ORDERED: DEXTROSE 70% IV SCH ×3 (17:00)
[2019-08-04] MEDS: ALBUTEROL/IPRATROPIUM 2.5MG/0.5MG, 3 ML INLINE PRN (19:07)
[2019-08-05] MEDS: HEPARIN 25,000 UNITS/250ML PMX 250 ML IV PRN ×2 (01:55→16:42)
[2019-08-05 03:55] LABS: MEAN CORPUSCULAR HEMOGLOBIN 30.7 pg (27.5-34.5); MEAN CORPUSCULAR HGB CONC 32.7 g/dL (33.2-36.2); MEAN CORPUSCULAR VOLUME 93.8 fL (81-97); MEAN PLATELET VOLUME 9.8 fL (7.4-10.4); PLATELET COUNT 196 x10^3/uL (130-400); RED BLOOD COUNT 3.54 x10^6/uL (4.38-5.82); RED CELL DISTRIBUTION WIDTH 14.5 % (9.4-14.8)
[2019-08-05 04:01] LABS: ANION GAP 8 mmol/L (5-15); CALCIUM 7.4 mg/dL (8.5-10.1); CHLORIDE 117 mmol/L (98-107)
[2019-08-05 04:06] LABS: ALANINE AMINOTRANSFERASE 28 U/L (12-78); ALKALINE PHOSPHATASE 51 U/L (45-117); BILIRUBIN,TOTAL 0.4 mg/dL (0.2-1.0); CREATININE 1.73 mg/dL (0.7-1.3); TOTAL PROTEIN 4.6 g/dL (6.4-8.2); TRIGLYCERIDES 64 mg/dL (50-200)
[2019-08-05 04:29] LABS: MD YES
[2019-08-05 04:31] LABS: BAND#(MANUAL) 2.03 x10^3/uL; BANDS%(MANUAL) 16 % (0-7); LYMPH#(MANUAL) 0.64 x10^3/uL (1-3.4); LYMPHS% (MANUAL) 5 % (22-44); SEG#(MANUAL) 10.03 x10^3/uL (1.8-6.8); SEGS% (MANUAL) 79 % (42-75)
[2019-08-05 04:32] LABS: <PLATELET ESTIMATE> ADEQUATE; <PLT MORPHOLOGY> NORMAL PLT MORPH; POLYCHROMASIA 1+
[2019-08-05] MEDS: HEPARIN 5,000 UNITS/ML, 1ML IV PRN ×3 (04:43→21:43)
[2019-08-05] MEDS: PROPOFOL 100 ML IV PRN ×2 (04:45→16:43)
[2019-08-05] MEDS: INSULIN REGULAR HIGH DOSE Q6H X 48HRS SQ-INSULIN SCH ×4 (05:02→22:58)
[2019-08-05] MEDS: ALBUTEROL/IPRATROPIUM 2.5MG/0.5MG, 3 ML INLINE PRN (07:15)
[2019-08-05] MEDS: LINEZOLID PMX 600MG/300ML 300 ML IV SCH ×2 (08:30→20:51)
[2019-08-05] MEDS ORDERED: INSULIN GLARGINE 100 UNITS/ML, PEN SQ-INSULIN ONE (08:30)
[2019-08-05] MEDS: PANTOPRAZOLE 40 MG IV IVPush SCH (08:31)
[2019-08-05] MEDS: INSULIN GLARGINE 100 UNITS/ML, PEN SQ-INSULIN SCH ×2 (09:00→20:51)
[2019-08-05] MEDS ORDERED: CALCIUM GLUCONATE 9.2 MEQ in SODIUM CHLORIDE 0.9% 100 ML IV ONE (09:30)
[2019-08-05] MEDS: CEFEPIME 2 GM in DEXTROSE 5% 100 ML IV SCH ×2 (10:37→22:54)
[2019-08-05] MEDS: SODIUM CHLORIDE FLUSH 10ML SYR IVF SCH ×2 (10:37→20:53)
[2019-08-05] MEDS: FENTANYL PF 100 MCG/2ML IVPush PRN ×2 (10:38→14:53)
[2019-08-05] MEDS: METRONIDAZOLE PMX 500MG/100ML 100 ML IV SCH ×2 (13:02→20:52)
[2019-08-05] MEDS: NOREPINEPHRINE 8 MG in SODIUM CHLORIDE 0.9% 242 ML IV PRN (16:43)
[2019-08-05] MEDS ORDERED: [UNRECOGNIZED DRUG - OTHER] IV SCH (17:00)
[2019-08-05] MEDS ORDERED: AMINO ACID 10% IV SCH (17:00)
[2019-08-05] MEDS ORDERED: DEXTROSE 70% IV SCH (17:00)
[2019-08-05] MEDS ORDERED: STERILE WATER IV SCH (17:00)
[2019-08-05] MEDS: FILTER 1.2 MICRON IV SCH (18:29)
[2019-08-06] MEDS: CALCIUM GLUCONATE 4.6 MEQ in SODIUM CHLORIDE 0.9% 100 ML IV PRN ×4 (01:18→19:10)
[2019-08-06] MEDS: PROPOFOL 100 ML IV PRN ×2 (03:18→12:14)
[2019-08-06 04:03] LABS: MEAN CORPUSCULAR HEMOGLOBIN 30.7 pg (27.5-34.5); MEAN CORPUSCULAR HGB CONC 33.1 g/dL (33.2-36.2); MEAN CORPUSCULAR VOLUME 92.9 fL (81-97); MEAN PLATELET VOLUME 9.9 fL (7.4-10.4); PLATELET COUNT 223 x10^3/uL (130-400); RED BLOOD COUNT 3.58 x10^6/uL (4.38-5.82)
[2019-08-06 04:10] LABS: ANION GAP 8 mmol/L (5-15); CHLORIDE 116 mmol/L (98-107); CREATININE 1.23 mg/dL (0.7-1.3)
[2019-08-06 04:17] LABS: MD YES
[2019-08-06 04:25] LABS: BAND#(MANUAL) 0.93 x10^3/uL; BANDS%(MANUAL) 8 % (0-7); LYMPH#(MANUAL) 0.23 x10^3/uL (1-3.4); LYMPHS% (MANUAL) 2 % (22-44); MONOS#(MANUAL) 0.23 x10^3/uL (0.3-2.7); MONOS% (MANUAL) 2 % (2-9); SEG#(MANUAL) 10.21 x10^3/uL (1.8-6.8); SEGS% (MANUAL) 88 % (42-75)
[2019-08-06 04:26] LABS: ANISOCYTOSIS 1+; POLYCHROMASIA 1+
[2019-08-06 04:28] LABS: <PLATELET ESTIMATE> ADEQUATE; <PLT MORPHOLOGY> NORMAL PLT MORPH
[2019-08-06] MEDS: INSULIN REGULAR HIGH DOSE Q6H X 48HRS SQ-INSULIN SCH ×4 (05:33→22:38)
[2019-08-06] MEDS: METRONIDAZOLE PMX 500MG/100ML 100 ML IV SCH ×3 (05:34→22:38)
[2019-08-06] MEDS: HEPARIN 25,000 UNITS/250ML PMX 250 ML IV PRN ×2 (06:55→18:44)
[2019-08-06] MEDS: PANTOPRAZOLE 40 MG IV IVPush SCH (08:04)
[2019-08-06] MEDS: INSULIN GLARGINE 100 UNITS/ML, PEN SQ-INSULIN SCH ×2 (08:38→22:37)
[2019-08-06] MEDS: SODIUM CHLORIDE FLUSH 10ML SYR IVF SCH ×2 (08:39→21:14)
[2019-08-06] MEDS: LINEZOLID PMX 600MG/300ML 300 ML IV SCH ×2 (08:40→21:15)
[2019-08-06] MEDS: ALBUTEROL/IPRATROPIUM 2.5MG/0.5MG, 3 ML INLINE PRN ×3 (09:54→15:20)
[2019-08-06] MEDS: CEFEPIME 2 GM in DEXTROSE 5% 100 ML IV SCH ×2 (10:45→22:38)
[2019-08-06] MEDS: FENTANYL PF 100 MCG/2ML IVPush PRN ×2 (14:51→17:37)
[2019-08-06] MEDS: FILTER 1.2 MICRON IV SCH (16:31)
[2019-08-06] MEDS ORDERED: OLIV IV SCH ×2 (17:00)
[2019-08-06] MEDS ORDERED: FISH OIL IV SCH ×2 (17:00)
[2019-08-06] MEDS ORDERED: [UNRECOGNIZED DRUG - OTHER] IV SCH (17:00)
[2019-08-06] MEDS ORDERED: MCT IV SCH ×2 (17:00)
[2019-08-06] MEDS ORDERED: FAT EMUL IV SCH ×2 (17:00)
[2019-08-06] MEDS ORDERED: DEXTROSE 70% IV SCH ×2 (17:00)
[2019-08-06] MEDS ORDERED: AMINO ACID 10% IV SCH ×2 (17:00)
[2019-08-06] MEDS ORDERED: [UNRECOGNIZED DRUG - OTHER] IV SCH (17:00)
[2019-08-06] MEDS ORDERED: SOY IV SCH ×2 (17:00)
[2019-08-07] MEDS: FENTANYL PF 100 MCG/2ML IVPush PRN ×3 (03:30→22:06)
[2019-08-07] MEDS: CALCIUM GLUCONATE 4.6 MEQ in SODIUM CHLORIDE 0.9% 100 ML IV PRN (04:45)
[2019-08-07] MEDS: PROPOFOL 100 ML IV PRN (05:20)
[2019-08-07] MEDS: INSULIN REGULAR HIGH DOSE Q6H X 48HRS SQ-INSULIN SCH ×4 (05:23→21:52)
[2019-08-07] MEDS: METRONIDAZOLE PMX 500MG/100ML 100 ML IV SCH ×3 (05:24→21:52)
[2019-08-07 05:41] LABS: BASOPHILS # (AUTO) 0.01 x10^3/uL (0-0.1); BASOPHILS % (AUTO) 0 % (0-1); EOSINOPHILS # (AUTO) 0.06 x10^3/uL (0-0.4); EOSINOPHILS % (AUTO) 1 % (1-7); LYMPHOCYTES # (AUTO) 0.68 x10^3/uL (1-3.4); LYMPHOCYTES % (AUTO) 6 % (22-44); MD NO; MEAN CORPUSCULAR HEMOGLOBIN 30.7 pg (27.5-34.5); MEAN CORPUSCULAR HGB CONC 32.8 g/dL (33.2-36.2); MEAN CORPUSCULAR VOLUME 93.8 fL (81-97); MEAN PLATELET VOLUME 10.1 fL (7.4-10.4); MONOCYTES # (AUTO) 0.12 x10^3/uL (0.2-0.8); MONOCYTES % (AUTO) 1 % (2-9); NEUTROPHILS # (AUTO) 11.34 x10^3/uL (1.8-6.8); NEUTROPHILS % (AUTO) 93 % (42-75); PLATELET COUNT 222 x10^3/uL (130-400); RED BLOOD COUNT 3.41 x10^6/uL (4.38-5.82); RED CELL DISTRIBUTION WIDTH 14.8 % (9.4-14.8)
[2019-08-07 05:48] LABS: ANION GAP 7 mmol/L (5-15); CALCIUM 8.1 mg/dL (8.5-10.1); CHLORIDE 112 mmol/L (98-107); CREATININE 1.09 mg/dL (0.7-1.3)
[2019-08-07] MEDS: LINEZOLID PMX 600MG/300ML 300 ML IV SCH ×2 (09:39→21:12)
[2019-08-07] MEDS: PANTOPRAZOLE 40 MG IV IVPush SCH (09:39)
[2019-08-07] MEDS: SODIUM CHLORIDE FLUSH 10ML SYR IVF SCH ×2 (09:40→21:12)
[2019-08-07] MEDS: INSULIN GLARGINE 100 UNITS/ML, PEN SQ-INSULIN SCH ×2 (09:41→21:52)
[2019-08-07] MEDS: CEFEPIME 2 GM in DEXTROSE 5% 100 ML IV SCH ×2 (11:37→23:27)
[2019-08-07] MEDS ORDERED: FAT EMUL IV SCH (17:00)
[2019-08-07] MEDS ORDERED: AMINO ACID 10% IV SCH (17:00)
[2019-08-07] MEDS ORDERED: [UNRECOGNIZED DRUG - OTHER] IV SCH (17:00)
[2019-08-07] MEDS ORDERED: DEXTROSE 70% IV SCH (17:00)
[2019-08-07] MEDS ORDERED: FISH OIL IV SCH (17:00)
[2019-08-07] MEDS ORDERED: SOY IV SCH (17:00)
[2019-08-07] MEDS ORDERED: MCT IV SCH (17:00)
[2019-08-07] MEDS ORDERED: OLIV IV SCH (17:00)
[2019-08-07] MEDS: FILTER 1.2 MICRON IV SCH (17:02)
[2019-08-08] MEDS: PROPOFOL 100 ML IV PRN ×2 (00:31→12:17)
[2019-08-08 04:21] LABS: MEAN CORPUSCULAR HEMOGLOBIN 30.3 pg (27.5-34.5); MEAN CORPUSCULAR HGB CONC 32.2 g/dL (33.2-36.2); MEAN CORPUSCULAR VOLUME 94.3 fL (81-97); MEAN PLATELET VOLUME 9.2 fL (7.4-10.4); PLATELET COUNT 254 x10^3/uL (130-400); RED BLOOD COUNT 3.35 x10^6/uL (4.38-5.82); RED CELL DISTRIBUTION WIDTH 15.1 % (9.4-14.8)
[2019-08-08 04:34] LABS: ANION GAP 5 mmol/L (5-15); CALCIUM 8.2 mg/dL (8.5-10.1); CHLORIDE 112 mmol/L (98-107); CREATININE 1.06 mg/dL (0.7-1.3); TRIGLYCERIDES 125 mg/dL (50-200)
[2019-08-08 04:38] LABS: MD YES
[2019-08-08 04:40] LABS: <PLATELET ESTIMATE> ADEQUATE; <PLT MORPHOLOGY> NORMAL PLT MORPH; ANISOCYTOSIS 1+; BAND#(MANUAL) 0.59 x10^3/uL; BANDS%(MANUAL) 6 % (0-7); LYMPH#(MANUAL) 0.99 x10^3/uL (1-3.4); LYMPHS% (MANUAL) 10 % (22-44); MONOS% (MANUAL) 2 % (2-9); POLYCHROMASIA 1+; SEG#(MANUAL) 8.12 x10^3/uL (1.8-6.8); SEGS% (MANUAL) 82 % (42-75)
[2019-08-08] MEDS: METRONIDAZOLE PMX 500MG/100ML 100 ML IV SCH ×3 (05:29→21:49)
[2019-08-08] MEDS: INSULIN REGULAR HIGH DOSE Q6H X 48HRS SQ-INSULIN SCH ×4 (05:29→23:44)
[2019-08-08] MEDS: LINEZOLID PMX 600MG/300ML 300 ML IV SCH ×2 (09:49→20:11)
[2019-08-08] MEDS: PANTOPRAZOLE 40 MG IV IVPush SCH (09:49)
[2019-08-08] MEDS: INSULIN GLARGINE 100 UNITS/ML, PEN SQ-INSULIN SCH ×2 (09:50→21:49)
[2019-08-08] MEDS: SODIUM CHLORIDE FLUSH 10ML SYR IVF SCH ×2 (09:50→21:46)
[2019-08-08] MEDS: CEFEPIME 2 GM in DEXTROSE 5% 100 ML IV SCH ×2 (10:59→23:40)
[2019-08-08] MEDS: FENTANYL PF 100 MCG/2ML IVPush PRN (12:19)
[2019-08-08] MEDS ORDERED: FISH OIL IV SCH (17:00)
[2019-08-08] MEDS ORDERED: FAT EMUL IV SCH (17:00)
[2019-08-08] MEDS ORDERED: SOY IV SCH (17:00)
[2019-08-08] MEDS ORDERED: MCT IV SCH (17:00)
[2019-08-08] MEDS ORDERED: OLIV IV SCH (17:00)
[2019-08-08] MEDS ORDERED: [UNRECOGNIZED DRUG - OTHER] IV SCH (17:00)
[2019-08-08] MEDS ORDERED: AMINO ACID 10% IV SCH (17:00)
[2019-08-08] MEDS ORDERED: DEXTROSE 70% IV SCH (17:00)
[2019-08-08] MEDS: FILTER 1.2 MICRON IV SCH (17:18)
[2019-08-09] MEDS: PROPOFOL 100 ML IV PRN ×2 (03:02→13:57)
[2019-08-09 05:31] LABS: ANION GAP 6 mmol/L (5-15); CALCIUM 8.5 mg/dL (8.5-10.1); CHLORIDE 110 mmol/L (98-107)
[2019-08-09 05:34] LABS: CREATININE 0.98 mg/dL (0.7-1.3)
[2019-08-09 05:44] LABS: MEAN CORPUSCULAR HEMOGLOBIN 30.6 pg (27.5-34.5); MEAN CORPUSCULAR VOLUME 92.5 fL (81-97); MEAN PLATELET VOLUME 9.4 fL (7.4-10.4); PLATELET COUNT 282 x10^3/uL (130-400); RED BLOOD COUNT 3.47 x10^6/uL (4.38-5.82); RED CELL DISTRIBUTION WIDTH 15.3 % (9.4-14.8)
[2019-08-09] MEDS: METRONIDAZOLE PMX 500MG/100ML 100 ML IV SCH (05:53)
[2019-08-09] MEDS: INSULIN REGULAR HIGH DOSE Q6H X 48HRS SQ-INSULIN SCH ×4 (05:54→22:15)
[2019-08-09 06:26] LABS: MD YES
[2019-08-09 06:28] LABS: <PLATELET ESTIMATE> ADEQUATE; ANISOCYTOSIS 1+; BAND#(MANUAL) 0.23 x10^3/uL; BANDS%(MANUAL) 2 % (0-7); LYMPH#(MANUAL) 0.45 x10^3/uL (1-3.4); LYMPHS% (MANUAL) 4 % (22-44); METAMYELOCYTES# (MANUAL) 0.34 x10^3/uL (0-0); METAMYELOCYTES% (MANUAL) 3 % (0-1); MONOS#(MANUAL) 0.34 x10^3/uL (0.3-2.7); MONOS% (MANUAL) 3 % (2-9); POLYCHROMASIA 1+; SEG#(MANUAL) 9.94 x10^3/uL (1.8-6.8); SEGS% (MANUAL) 88 % (42-75)
[2019-08-09 06:29] LABS: <PLT MORPHOLOGY> NORMAL PLT MORPH
[2019-08-09] MEDS: PANTOPRAZOLE 40 MG IV IVPush SCH (07:45)
[2019-08-09] MEDS: SODIUM CHLORIDE FLUSH 10ML SYR IVF SCH ×2 (08:42→22:15)
[2019-08-09] MEDS: LINEZOLID PMX 600MG/300ML 300 ML IV SCH (08:42)
[2019-08-09] MEDS: INSULIN GLARGINE 100 UNITS/ML, PEN SQ-INSULIN SCH ×2 (08:49→22:15)
[2019-08-09] MEDS: CEFTRIAXONE PMX 2GM/50ML 50 ML IV SCH (12:35)
[2019-08-09] MEDS: DAPTOMYCIN 725 MG in SODIUM CHLORIDE 0.9% 100 ML IVPB SCH (12:36)
[2019-08-09 13:26] LABS: HCT (SEDRATE) 32.8 % (39.2-51.8)
[2019-08-09 13:39] LABS: BILIRUBIN, DIRECT 0.4 mg/dL (0.1-0.2)
[2019-08-09 13:46] LABS: BILIRUBIN,INDIRECT 0.3 mg/dL (0.0-2.0); BILIRUBIN,TOTAL 0.7 mg/dL (0.2-1.0); TOTAL PROTEIN 5.2 g/dL (6.4-8.2)
[2019-08-09] MEDS: FILTER 1.2 MICRON IV SCH (17:00)
[2019-08-09] MEDS ORDERED: AMINO ACID 10% IV SCH (18:00)
[2019-08-09] MEDS ORDERED: SOY IV SCH (18:00)
[2019-08-09] MEDS ORDERED: FAT EMUL IV SCH (18:00)
[2019-08-09] MEDS ORDERED: MCT IV SCH (18:00)
[2019-08-09] MEDS ORDERED: DEXTROSE 70% IV SCH (18:00)
[2019-08-09] MEDS ORDERED: FISH OIL IV SCH (18:00)
[2019-08-09] MEDS ORDERED: OLIV IV SCH (18:00)
[2019-08-09] MEDS ORDERED: [UNRECOGNIZED DRUG - OTHER] IV SCH (18:00)
[2019-08-09] MEDS: FENTANYL PF 100 MCG/2ML IVPush PRN (22:36)
[2019-08-10] MEDS: PROPOFOL 100 ML IV PRN (03:50)
[2019-08-10] MEDS: INSULIN REGULAR HIGH DOSE Q6H X 48HRS SQ-INSULIN SCH ×4 (05:00→23:50)
[2019-08-10 05:02] LABS: MEAN CORPUSCULAR HEMOGLOBIN 30.2 pg (27.5-34.5); MEAN CORPUSCULAR HGB CONC 32.9 g/dL (33.2-36.2); MEAN CORPUSCULAR VOLUME 91.9 fL (81-97); RED BLOOD COUNT 3.41 x10^6/uL (4.38-5.82); RED CELL DISTRIBUTION WIDTH 15.2 % (9.4-14.8)
[2019-08-10 05:10] LABS: ANION GAP 6 mmol/L (5-15); CALCIUM 8.2 mg/dL (8.5-10.1); CHLORIDE 108 mmol/L (98-107)
[2019-08-10 05:12] LABS: CREATININE 1.11 mg/dL (0.7-1.3)
[2019-08-10 05:42] LABS: MD YES; MEAN PLATELET VOLUME 8.8 fL (7.4-10.4); PLATELET COUNT 289 x10^3/uL (130-400)
[2019-08-10 05:43] LABS: ANISOCYTOSIS 1+; BAND#(MANUAL) 0.41 x10^3/uL; BANDS%(MANUAL) 3 % (0-7); LYMPH#(MANUAL) 0.69 x10^3/uL (1-3.4); LYMPHS% (MANUAL) 5 % (22-44); METAMYELOCYTES# (MANUAL) 0.41 x10^3/uL (0-0); METAMYELOCYTES% (MANUAL) 3 % (0-1); MONOS#(MANUAL) 0.69 x10^3/uL (0.3-2.7); MONOS% (MANUAL) 5 % (2-9); MYELOCYTES# (MANUAL) 0.14 x10^3/uL (0-0); MYELOCYTES% (MANUAL) 1 % (0-0); NRBC % (MANUAL) 1 % (0-1); POLYCHROMASIA 1+; SEG#(MANUAL) 11.45 x10^3/uL (1.8-6.8); SEGS% (MANUAL) 83 % (42-75)
[2019-08-10 05:44] LABS: <PLATELET ESTIMATE> ADEQUATE; <PLT MORPHOLOGY> NORMAL PLT MORPH
[2019-08-10] MEDS: FENTANYL PF 100 MCG/2ML IVPush PRN (05:51)
[2019-08-10] MEDS: SODIUM CHLORIDE FLUSH 10ML SYR IVF SCH ×2 (08:19→21:28)
[2019-08-10] MEDS: PANTOPRAZOLE 40 MG IV IVPush SCH (08:19)
[2019-08-10] MEDS: INSULIN GLARGINE 100 UNITS/ML, PEN SQ-INSULIN SCH ×2 (10:27→21:31)
[2019-08-10] MEDS: CEFTRIAXONE PMX 2GM/50ML 50 ML IV SCH (12:04)
[2019-08-10] MEDS: DAPTOMYCIN 725 MG in SODIUM CHLORIDE 0.9% 100 ML IVPB SCH (12:54)
[2019-08-10 15:45] LABS: MICROSCOPIC INDICATED
[2019-08-10] MEDS ORDERED: SOY IV SCH (17:00)
[2019-08-10] MEDS ORDERED: FAT EMUL IV SCH (17:00)
[2019-08-10] MEDS ORDERED: [UNRECOGNIZED DRUG - OTHER] IV SCH (17:00)
[2019-08-10] MEDS ORDERED: OLIV IV SCH (17:00)
[2019-08-10] MEDS ORDERED: FISH OIL IV SCH (17:00)
[2019-08-10] MEDS ORDERED: MCT IV SCH (17:00)
[2019-08-10] MEDS ORDERED: AMINO ACID 10% IV SCH (17:00)
[2019-08-10] MEDS ORDERED: DEXTROSE 70% IV SCH (17:00)
[2019-08-10] MEDS: FILTER 1.2 MICRON IV SCH (18:11)
[2019-08-11] MEDS: INSULIN REGULAR HIGH DOSE Q6H X 48HRS SQ-INSULIN SCH ×4 (05:00→23:00)
[2019-08-11 05:48] LABS: MEAN CORPUSCULAR HEMOGLOBIN 30.4 pg (27.5-34.5); MEAN CORPUSCULAR HGB CONC 32.8 g/dL (33.2-36.2); MEAN CORPUSCULAR VOLUME 92.7 fL (81-97); MEAN PLATELET VOLUME 8.9 fL (7.4-10.4); PLATELET COUNT 338 x10^3/uL (130-400); RED BLOOD COUNT 3.38 x10^6/uL (4.38-5.82); RED CELL DISTRIBUTION WIDTH 15.4 % (9.4-14.8)
[2019-08-11 05:55] LABS: ANION GAP 13 mmol/L (5-15); CHLORIDE 123 mmol/L (98-107); CREATININE 0.91 mg/dL (0.7-1.3); TRIGLYCERIDES 143 mg/dL (50-200)
[2019-08-11 06:19] LABS: MD YES
[2019-08-11 06:20] LABS: BAND#(MANUAL) 1.45 x10^3/uL; BANDS%(MANUAL) 8 % (0-7); EOS#(MANUAL) 0.18 x10^3/uL (0.0-0.4); EOS% (MANUAL) 1 % (1-7); LYMPH#(MANUAL) 0.36 x10^3/uL (1-3.4); LYMPHS% (MANUAL) 2 % (22-44); METAMYELOCYTES# (MANUAL) 0.54 x10^3/uL (0-0); METAMYELOCYTES% (MANUAL) 3 % (0-1); MONOS#(MANUAL) 0.72 x10^3/uL (0.3-2.7); MONOS% (MANUAL) 4 % (2-9); NRBC % (MANUAL) 1 % (0-1); SEG#(MANUAL) 14.84 x10^3/uL (1.8-6.8); SEGS% (MANUAL) 82 % (42-75)
[2019-08-11 06:21] LABS: <PLATELET ESTIMATE> ADEQUATE; <PLT MORPHOLOGY> NORMAL PLT MORPH; ANISOCYTOSIS 1+; POLYCHROMASIA 1+
[2019-08-11] MEDS: PANTOPRAZOLE 40 MG IV IVPush SCH (09:15)
[2019-08-11] MEDS: SODIUM CHLORIDE FLUSH 10ML SYR IVF SCH ×2 (09:15→21:19)
[2019-08-11] MEDS: INSULIN GLARGINE 100 UNITS/ML, PEN SQ-INSULIN SCH ×2 (09:17→21:23)
[2019-08-11] MEDS: CEFTRIAXONE PMX 2GM/50ML 50 ML IV SCH (10:51)
[2019-08-11] MEDS: DAPTOMYCIN 725 MG in SODIUM CHLORIDE 0.9% 100 ML IVPB SCH (13:16)
[2019-08-11] MEDS: OXYcodone IR 5MG TABLET PO PRN ×2 (14:12→14:37)
[2019-08-11] MEDS ORDERED: FISH OIL IV SCH (17:00)
[2019-08-11] MEDS ORDERED: FAT EMUL IV SCH (17:00)
[2019-08-11] MEDS ORDERED: MCT IV SCH (17:00)
[2019-08-11] MEDS ORDERED: DEXTROSE 70% IV SCH (17:00)
[2019-08-11] MEDS ORDERED: AMINO ACID 10% IV SCH (17:00)
[2019-08-11] MEDS ORDERED: OLIV IV SCH (17:00)
[2019-08-11] MEDS ORDERED: [UNRECOGNIZED DRUG - OTHER] IV SCH (17:00)
[2019-08-11] MEDS ORDERED: SOY IV SCH (17:00)
[2019-08-11] MEDS: FILTER 1.2 MICRON IV SCH (17:07)
[2019-08-12] MEDS: INSULIN REGULAR HIGH DOSE Q6H X 48HRS SQ-INSULIN SCH ×4 (04:55→21:21)
[2019-08-12 05:19] LABS: MEAN CORPUSCULAR HEMOGLOBIN 30.6 pg (27.5-34.5); MEAN CORPUSCULAR HGB CONC 33.1 g/dL (33.2-36.2); MEAN CORPUSCULAR VOLUME 92.6 fL (81-97); MEAN PLATELET VOLUME 8.8 fL (7.4-10.4); PLATELET COUNT 306 x10^3/uL (130-400); RED BLOOD COUNT 3.12 x10^6/uL (4.38-5.82); RED CELL DISTRIBUTION WIDTH 15.4 % (9.4-14.8)
[2019-08-12 05:31] LABS: ANION GAP 6 mmol/L (5-15); CALCIUM 8.3 mg/dL (8.5-10.1); CHLORIDE 110 mmol/L (98-107); CREATININE 0.78 mg/dL (0.7-1.3)
[2019-08-12 05:38] LABS: PREALBUMIN 14.8 mg/dL (20.0-40.0)
[2019-08-12 05:47] LABS: MD YES
[2019-08-12 05:50] LABS: BAND#(MANUAL) 0.34 x10^3/uL; BANDS%(MANUAL) 2 % (0-7); LYMPH#(MANUAL) 1.02 x10^3/uL (1-3.4); LYMPHS% (MANUAL) 6 % (22-44); METAMYELOCYTES# (MANUAL) 0.17 x10^3/uL (0-0); METAMYELOCYTES% (MANUAL) 1 % (0-1); MONOS#(MANUAL) 0.85 x10^3/uL (0.3-2.7); MONOS% (MANUAL) 5 % (2-9); MYELOCYTES# (MANUAL) 0.17 x10^3/uL (0-0); MYELOCYTES% (MANUAL) 1 % (0-0); NRBC % (MANUAL) 1 % (0-1); SEG#(MANUAL) 14.45 x10^3/uL (1.8-6.8); SEGS% (MANUAL) 85 % (42-75)
[2019-08-12 05:51] LABS: <PLATELET ESTIMATE> ADEQUATE; <PLT MORPHOLOGY> NORMAL PLT MORPH; ANISOCYTOSIS 1+; POLYCHROMASIA 1+
[2019-08-12 06:27] LABS: HCT (SEDRATE) 28.9 % (39.2-51.8)
[2019-08-12] MEDS: SODIUM CHLORIDE FLUSH 10ML SYR IVF SCH ×2 (07:43→21:20)
[2019-08-12] MEDS: PANTOPRAZOLE 40 MG IV IVPush SCH (07:43)
[2019-08-12] MEDS: INSULIN GLARGINE 100 UNITS/ML, PEN SQ-INSULIN SCH ×2 (09:27→21:21)
[2019-08-12] MEDS ORDERED: ROCURONIUM 10MG/ML,5ML IVPush ONE (10:30)
[2019-08-12] MEDS ORDERED: PROPOFOL 10 MG/ML, 20ML IVPush ONE (10:30)
[2019-08-12] MEDS ORDERED: ROCURONIUM 10 MG/ML,10ML IVPush ONE (10:30)
[2019-08-12] MEDS: FENTANYL PF 100 MCG/2ML IVPush PRN (10:33)
[2019-08-12] MEDS: CEFTRIAXONE PMX 2GM/50ML 50 ML IV SCH (11:54)
[2019-08-12] MEDS: DAPTOMYCIN 725 MG in SODIUM CHLORIDE 0.9% 100 ML IVPB SCH (14:37)
[2019-08-12] MEDS ORDERED: PROPOFOL 10 MG/ML, 20ML ONE (16:20)
[2019-08-12] MEDS ORDERED: ROCURONIUM 10MG/ML,5ML ONE (16:20)
[2019-08-12] MEDS ORDERED: AMINO ACID 10% IV SCH (17:00)
[2019-08-12] MEDS ORDERED: DEXTROSE 70% IV SCH (17:00)
[2019-08-12] MEDS ORDERED: MCT IV SCH (17:00)
[2019-08-12] MEDS ORDERED: OLIV IV SCH (17:00)
[2019-08-12] MEDS ORDERED: SOY IV SCH (17:00)
[2019-08-12] MEDS ORDERED: FAT EMUL IV SCH (17:00)
[2019-08-12] MEDS ORDERED: [UNRECOGNIZED DRUG - OTHER] IV SCH (17:00)
[2019-08-12] MEDS ORDERED: FISH OIL IV SCH (17:00)
[2019-08-12] MEDS: FILTER 1.2 MICRON IV SCH (17:09)
[2019-08-12] MEDS ORDERED: ALBUMIN HUMAN 25% 100 ML ONE (17:16)
[2019-08-13 04:05] LABS: ANION GAP 6 mmol/L (5-15); CALCIUM 8.5 mg/dL (8.5-10.1); CHLORIDE 108 mmol/L (98-107); CREATININE 0.72 mg/dL (0.7-1.3)
[2019-08-13 04:06] LABS: MEAN CORPUSCULAR HEMOGLOBIN 30.5 pg (27.5-34.5); MEAN CORPUSCULAR HGB CONC 33.2 g/dL (33.2-36.2); MEAN CORPUSCULAR VOLUME 91.9 fL (81-97); MEAN PLATELET VOLUME 8.7 fL (7.4-10.4); PLATELET COUNT 340 x10^3/uL (130-400); RED BLOOD COUNT 2.98 x10^6/uL (4.38-5.82); RED CELL DISTRIBUTION WIDTH 15.4 % (9.4-14.8)
[2019-08-13 04:34] LABS: BAND#(MANUAL) 0.18 x10^3/uL; BANDS%(MANUAL) 1 % (0-7); EOS#(MANUAL) 0.18 x10^3/uL (0.0-0.4); EOS% (MANUAL) 1 % (1-7); LYMPH#(MANUAL) 0.36 x10^3/uL (1-3.4); LYMPHS% (MANUAL) 2 % (22-44); MD YES; METAMYELOCYTES# (MANUAL) 0.36 x10^3/uL (0-0); METAMYELOCYTES% (MANUAL) 2 % (0-1); MONOS#(MANUAL) 1.43 x10^3/uL (0.3-2.7); MONOS% (MANUAL) 8 % (2-9); MYELOCYTES# (MANUAL) 0.18 x10^3/uL (0-0); MYELOCYTES% (MANUAL) 1 % (0-0); NRBC % (MANUAL) 1 % (0-1); SEG#(MANUAL) 15.22 x10^3/uL (1.8-6.8); SEGS% (MANUAL) 85 % (42-75)
[2019-08-13 04:35] LABS: ANISOCYTOSIS 1+; POLYCHROMASIA 1+
[2019-08-13 04:36] LABS: <PLATELET ESTIMATE> ADEQUATE; <PLT MORPHOLOGY> NORMAL PLT MORPH
[2019-08-13] MEDS: INSULIN REGULAR HIGH DOSE Q6H X 48HRS SQ-INSULIN SCH ×4 (04:55→23:00)
[2019-08-13] MEDS: PANTOPRAZOLE 40 MG IV IVPush SCH (07:15)
[2019-08-13] MEDS: SODIUM CHLORIDE FLUSH 10ML SYR IVF SCH ×2 (07:15→21:43)
[2019-08-13] MEDS ORDERED: FUROSEMIDE 20 MG/2 ML IV ONE (09:00)
[2019-08-13] MEDS ORDERED: POTASSIUM CHLORIDE 40 MEQ in SODIUM CHLORIDE 0.9% 100 ML IV ONE (09:00)
[2019-08-13] MEDS: HEPARIN 5,000 UNITS/ML, 1ML SQ SCH ×2 (09:07→18:02)
[2019-08-13] MEDS: CEFTRIAXONE PMX 2GM/50ML 50 ML IV SCH (11:39)
[2019-08-13] MEDS: DAPTOMYCIN 725 MG in SODIUM CHLORIDE 0.9% 100 ML IVPB SCH (14:35)
[2019-08-13] MEDS ORDERED: LIDOCAINE GEL 2%, 5ML ONE (15:38)
[2019-08-13] MEDS ORDERED: FENTANYL PF 100 MCG/2ML ONE (15:46)
[2019-08-13] MEDS ORDERED: AMINO ACID 10% IV SCH (17:00)
[2019-08-13] MEDS ORDERED: OLIV IV SCH (17:00)
[2019-08-13] MEDS ORDERED: SOY IV SCH (17:00)
[2019-08-13] MEDS ORDERED: DEXTROSE 70% IV SCH (17:00)
[2019-08-13] MEDS ORDERED: [UNRECOGNIZED DRUG - OTHER] IV SCH (17:00)
[2019-08-13] MEDS ORDERED: FAT EMUL IV SCH (17:00)
[2019-08-13] MEDS ORDERED: MCT IV SCH (17:00)
[2019-08-13] MEDS ORDERED: FISH OIL IV SCH (17:00)
[2019-08-13] MEDS: FILTER 1.2 MICRON IV SCH (18:01)
[2019-08-14] MEDS: HEPARIN 5,000 UNITS/ML, 1ML SQ SCH ×3 (01:31→18:04)
[2019-08-14] MEDS: INSULIN REGULAR HIGH DOSE Q6H X 48HRS SQ-INSULIN SCH ×4 (05:00→23:00)
[2019-08-14 05:20] LABS: MEAN CORPUSCULAR HEMOGLOBIN 30.9 pg (27.5-34.5); MEAN CORPUSCULAR HGB CONC 33.4 g/dL (33.2-36.2); MEAN CORPUSCULAR VOLUME 92.7 fL (81-97); MEAN PLATELET VOLUME 8.4 fL (7.4-10.4); PLATELET COUNT 321 x10^3/uL (130-400); RED BLOOD COUNT 2.82 x10^6/uL (4.38-5.82); RED CELL DISTRIBUTION WIDTH 15.6 % (9.4-14.8)
[2019-08-14 05:37] LABS: ANION GAP 6 mmol/L (5-15); CALCIUM 8.5 mg/dL (8.5-10.1); CHLORIDE 110 mmol/L (98-107)
[2019-08-14 05:38] LABS: CREATININE 0.64 mg/dL (0.7-1.3); TRIGLYCERIDES 120 mg/dL (50-200)
[2019-08-14 06:03] LABS: MD YES
[2019-08-14 06:05] LABS: ANISOCYTOSIS 1+; BAND#(MANUAL) 0.62 x10^3/uL; BANDS%(MANUAL) 4 % (0-7); EOS#(MANUAL) 0.31 x10^3/uL (0.0-0.4); EOS% (MANUAL) 2 % (1-7); LYMPH#(MANUAL) 0.77 x10^3/uL (1-3.4); LYMPHS% (MANUAL) 5 % (22-44); METAMYELOCYTES# (MANUAL) 0.15 x10^3/uL (0-0); METAMYELOCYTES% (MANUAL) 1 % (0-1); MONOS#(MANUAL) 0.77 x10^3/uL (0.3-2.7); MONOS% (MANUAL) 5 % (2-9); MYELOCYTES# (MANUAL) 0.15 x10^3/uL (0-0); MYELOCYTES% (MANUAL) 1 % (0-0); POLYCHROMASIA 1+; SEG#(MANUAL) 12.63 x10^3/uL (1.8-6.8); SEGS% (MANUAL) 82 % (42-75)
[2019-08-14 06:06] LABS: <PLATELET ESTIMATE> ADEQUATE; <PLT MORPHOLOGY> NORMAL PLT MORPH
[2019-08-14] MEDS ORDERED: FUROSEMIDE 20 MG/2 ML IV SCH (07:30)
[2019-08-14] MEDS: POTASSIUM CHLORIDE 10% 20 MEQ/15 ML UDC PO SCH (08:15)
[2019-08-14] MEDS: PANTOPRAZOLE 40 MG IV IVPush SCH (08:15)
[2019-08-14] MEDS: SODIUM CHLORIDE FLUSH 10ML SYR IVF SCH ×2 (08:16→20:33)
[2019-08-14] MEDS: CEFTRIAXONE PMX 2GM/50ML 50 ML IV SCH (12:13)
[2019-08-14] MEDS: DAPTOMYCIN 725 MG in SODIUM CHLORIDE 0.9% 100 ML IVPB SCH (13:06)
[2019-08-14] MEDS ORDERED: OLIV IV SCH (17:00)
[2019-08-14] MEDS ORDERED: SOY IV SCH (17:00)
[2019-08-14] MEDS ORDERED: AMINO ACID 10% IV SCH (17:00)
[2019-08-14] MEDS ORDERED: FAT EMUL IV SCH (17:00)
[2019-08-14] MEDS ORDERED: FISH OIL IV SCH (17:00)
[2019-08-14] MEDS ORDERED: MCT IV SCH (17:00)
[2019-08-14] MEDS ORDERED: DEXTROSE 70% IV SCH (17:00)
[2019-08-14] MEDS ORDERED: [UNRECOGNIZED DRUG - OTHER] IV SCH (17:00)
[2019-08-14] MEDS: FILTER 1.2 MICRON IV SCH (17:57)
[2019-08-14] MEDS: OXYcodone IR 5MG TABLET PO PRN (20:33)
[2019-08-15] MEDS: FENTANYL PF 100 MCG/2ML IVPush PRN ×2 (00:04→21:26)
[2019-08-15] MEDS: HEPARIN 5,000 UNITS/ML, 1ML SQ SCH ×3 (02:33→17:06)
[2019-08-15 04:31] LABS: MEAN CORPUSCULAR HEMOGLOBIN 30.5 pg (27.5-34.5); MEAN CORPUSCULAR HGB CONC 32.7 g/dL (33.2-36.2); MEAN CORPUSCULAR VOLUME 93.5 fL (81-97); MEAN PLATELET VOLUME 9.1 fL (7.4-10.4); PLATELET COUNT 321 x10^3/uL (130-400); RED BLOOD COUNT 2.86 x10^6/uL (4.38-5.82); RED CELL DISTRIBUTION WIDTH 16.2 % (9.4-14.8)
[2019-08-15 04:42] LABS: ANION GAP 5 mmol/L (5-15); CALCIUM 8.3 mg/dL (8.5-10.1); CHLORIDE 112 mmol/L (98-107); CREATININE 0.59 mg/dL (0.7-1.3)
[2019-08-15] MEDS: INSULIN REGULAR HIGH DOSE Q6H X 48HRS SQ-INSULIN SCH ×4 (05:00→23:00)
[2019-08-15 05:47] LABS: MD YES
[2019-08-15 05:48] LABS: ANISOCYTOSIS 1+; BAND#(MANUAL) 0.15 x10^3/uL; BANDS%(MANUAL) 1 % (0-7); LYMPH#(MANUAL) 1.18 x10^3/uL (1-3.4); LYMPHS% (MANUAL) 8 % (22-44); MONOS#(MANUAL) 0.74 x10^3/uL (0.3-2.7); MONOS% (MANUAL) 5 % (2-9); MYELOCYTES# (MANUAL) 0.15 x10^3/uL (0-0); MYELOCYTES% (MANUAL) 1 % (0-0); POLYCHROMASIA 1+; SEG#(MANUAL) 12.58 x10^3/uL (1.8-6.8); SEGS% (MANUAL) 85 % (42-75)
[2019-08-15 05:49] LABS: <PLATELET ESTIMATE> ADEQUATE; <PLT MORPHOLOGY> NORMAL PLT MORPH
[2019-08-15] MEDS: ALBUMIN HUMAN 25% 100 ML IV SCH (09:51)
[2019-08-15] MEDS: PANTOPRAZOLE 40 MG IV IVPush SCH (09:56)
[2019-08-15] MEDS: FUROSEMIDE 20 MG/2 ML IV SCH (09:57)
[2019-08-15] MEDS: SODIUM CHLORIDE FLUSH 10ML SYR IVF SCH ×2 (09:57→20:34)
[2019-08-15] MEDS: POTASSIUM CHLORIDE 10% 20 MEQ/15 ML UDC PO SCH (09:57)
[2019-08-15] MEDS: CEFTRIAXONE PMX 2GM/50ML 50 ML IV SCH (12:13)
[2019-08-15] MEDS: DAPTOMYCIN 725 MG in SODIUM CHLORIDE 0.9% 100 ML IVPB SCH (14:11)
[2019-08-15] MEDS ORDERED: OLIV IV SCH (17:00)
[2019-08-15] MEDS ORDERED: SOY IV SCH (17:00)
[2019-08-15] MEDS ORDERED: AMINO ACID 10% IV SCH (17:00)
[2019-08-15] MEDS ORDERED: FISH OIL IV SCH (17:00)
[2019-08-15] MEDS ORDERED: FAT EMUL IV SCH (17:00)
[2019-08-15] MEDS ORDERED: [UNRECOGNIZED DRUG - OTHER] IV SCH (17:00)
[2019-08-15] MEDS ORDERED: DEXTROSE 70% IV SCH (17:00)
[2019-08-15] MEDS ORDERED: MCT IV SCH (17:00)
[2019-08-15] MEDS: FILTER 1.2 MICRON IV SCH (17:06)
[2019-08-15] MEDS: OXYcodone IR 5MG TABLET PO PRN ×2 (18:01→22:47)
[2019-08-16] MEDS: HEPARIN 5,000 UNITS/ML, 1ML SQ SCH ×3 (01:32→18:22)
[2019-08-16] MEDS: HYDROmorphone 2 MG/ML, 1ML IVPush PRN (03:34)
[2019-08-16 03:59] LABS: BASOPHILS # (AUTO) 0.06 x10^3/uL (0-0.1); BASOPHILS % (AUTO) 0 % (0-1); EOSINOPHILS # (AUTO) 0.22 x10^3/uL (0-0.4); EOSINOPHILS % (AUTO) 2 % (1-7); LYMPHOCYTES # (AUTO) 0.96 x10^3/uL (1-3.4); LYMPHOCYTES % (AUTO) 7 % (22-44); MD NO; MEAN CORPUSCULAR HEMOGLOBIN 30.7 pg (27.5-34.5); MEAN CORPUSCULAR VOLUME 93.2 fL (81-97); MEAN PLATELET VOLUME 8.9 fL (7.4-10.4); MONOCYTES # (AUTO) 0.83 x10^3/uL (0.2-0.8); MONOCYTES % (AUTO) 6 % (2-9); NEUTROPHILS # (AUTO) 11.58 x10^3/uL (1.8-6.8); NEUTROPHILS % (AUTO) 85 % (42-75); PLATELET COUNT 352 x10^3/uL (130-400); RED BLOOD COUNT 2.72 x10^6/uL (4.38-5.82); RED CELL DISTRIBUTION WIDTH 15.9 % (9.4-14.8)
[2019-08-16 04:03] LABS: ANION GAP 6 mmol/L (5-15); CALCIUM 8.7 mg/dL (8.5-10.1); CHLORIDE 110 mmol/L (98-107)
[2019-08-16] MEDS: INSULIN REGULAR HIGH DOSE Q6H X 48HRS SQ-INSULIN SCH ×4 (04:52→23:00)
[2019-08-16] MEDS: FUROSEMIDE 20 MG/2 ML IV SCH (08:07)
[2019-08-16] MEDS: ALBUMIN HUMAN 25% 100 ML IV SCH (08:07)
[2019-08-16] MEDS: PANTOPRAZOLE 40 MG IV IVPush SCH (08:07)
[2019-08-16] MEDS: POTASSIUM CHLORIDE 10% 20 MEQ/15 ML UDC PO SCH (08:07)
[2019-08-16] MEDS: SODIUM CHLORIDE FLUSH 10ML SYR IVF SCH ×2 (08:08→20:52)
[2019-08-16] MEDS: KETOROLAC 30 MG/1 ML IVPush PRN ×2 (11:17→20:52)
[2019-08-16] MEDS: CEFTRIAXONE PMX 2GM/50ML 50 ML IV SCH (11:17)
[2019-08-16] MEDS: METHYLNALTREXONE 12 MG/0.6 ML SYR SQ SCH (11:17)
[2019-08-16] MEDS: DAPTOMYCIN 725 MG in SODIUM CHLORIDE 0.9% 100 ML IVPB SCH (15:58)
[2019-08-16] MEDS: FILTER 1.2 MICRON IV SCH (16:01)
[2019-08-16] MEDS ORDERED: FAT EMUL IV SCH (17:00)
[2019-08-16] MEDS ORDERED: MCT IV SCH (17:00)
[2019-08-16] MEDS ORDERED: AMINO ACID 10% IV SCH (17:00)
[2019-08-16] MEDS ORDERED: SOY IV SCH (17:00)
[2019-08-16] MEDS ORDERED: DEXTROSE 70% IV SCH (17:00)
[2019-08-16] MEDS ORDERED: [UNRECOGNIZED DRUG - OTHER] IV SCH (17:00)
[2019-08-16] MEDS ORDERED: FISH OIL IV SCH (17:00)
[2019-08-16] MEDS ORDERED: OLIV IV SCH (17:00)
[2019-08-16] MEDS: MELATONIN 5 MG TABLET PO PRN (23:15)
[2019-08-17] MEDS: HYDROmorphone 2 MG/ML, 1ML IVPush PRN (01:48)
[2019-08-17] MEDS: HEPARIN 5,000 UNITS/ML, 1ML SQ SCH ×3 (01:51→17:40)
[2019-08-17 04:56] LABS: MEAN CORPUSCULAR HEMOGLOBIN 30.4 pg (27.5-34.5); MEAN CORPUSCULAR HGB CONC 32.7 g/dL (33.2-36.2); MEAN CORPUSCULAR VOLUME 92.8 fL (81-97); MEAN PLATELET VOLUME 8.8 fL (7.4-10.4); PLATELET COUNT 321 x10^3/uL (130-400); RED BLOOD COUNT 2.56 x10^6/uL (4.38-5.82); RED CELL DISTRIBUTION WIDTH 16.2 % (9.4-14.8)
[2019-08-17] MEDS: INSULIN REGULAR HIGH DOSE Q6H X 48HRS SQ-INSULIN SCH ×4 (05:00→22:54)
[2019-08-17 05:09] LABS: ANION GAP 6 mmol/L (5-15); CALCIUM 8.5 mg/dL (8.5-10.1); CHLORIDE 109 mmol/L (98-107)
[2019-08-17 05:12] LABS: TRIGLYCERIDES 91 mg/dL (50-200)
[2019-08-17 06:33] LABS: BASOPHILS # (AUTO) 0.01 x10^3/uL (0-0.1); BASOPHILS % (AUTO) 0 % (0-1); EOSINOPHILS # (AUTO) 0.07 x10^3/uL (0-0.4); EOSINOPHILS % (AUTO) 1 % (1-7); LYMPHOCYTES # (AUTO) 0.86 x10^3/uL (1-3.4); LYMPHOCYTES % (AUTO) 7 % (22-44); MD SCAN; MONOCYTES # (AUTO) 0.76 x10^3/uL (0.2-0.8); MONOCYTES % (AUTO) 6 % (2-9); NEUTROPHILS # (AUTO) 10.34 x10^3/uL (1.8-6.8); NEUTROPHILS % (AUTO) 86 % (42-75)
[2019-08-17] MEDS: PANTOPRAZOLE 40 MG IV IVPush SCH (10:06)
[2019-08-17] MEDS: POTASSIUM CHLORIDE 10% 20 MEQ/15 ML UDC PO SCH (10:07)
[2019-08-17] MEDS: SODIUM CHLORIDE FLUSH 10ML SYR IVF SCH ×2 (10:07→20:07)
[2019-08-17] MEDS: KETOROLAC 30 MG/1 ML IVPush PRN ×2 (10:07→20:07)
[2019-08-17] MEDS: FUROSEMIDE 20 MG/2 ML IV SCH (10:07)
[2019-08-17] MEDS: ALBUMIN HUMAN 25% 100 ML IV SCH (10:23)
[2019-08-17] MEDS: CEFTRIAXONE PMX 2GM/50ML 50 ML IV SCH (10:24)
[2019-08-17] MEDS ORDERED: [UNRECOGNIZED DRUG - OTHER] IV SCH (17:00)
[2019-08-17] MEDS ORDERED: AMINO ACID 10% IV SCH (17:00)
[2019-08-17] MEDS ORDERED: FISH OIL IV SCH (17:00)
[2019-08-17] MEDS ORDERED: OLIV IV SCH (17:00)
[2019-08-17] MEDS ORDERED: FAT EMUL IV SCH (17:00)
[2019-08-17] MEDS ORDERED: DEXTROSE 70% IV SCH (17:00)
[2019-08-17] MEDS ORDERED: SOY IV SCH (17:00)
[2019-08-17] MEDS ORDERED: MCT IV SCH (17:00)
[2019-08-17] MEDS: DAPTOMYCIN 725 MG in SODIUM CHLORIDE 0.9% 100 ML IVPB SCH (17:30)
[2019-08-17] MEDS: FILTER 1.2 MICRON IV SCH (17:39)
[2019-08-17] MEDS: MELATONIN 5 MG TABLET PO PRN (22:33)
[2019-08-18] MEDS: HEPARIN 5,000 UNITS/ML, 1ML SQ SCH ×3 (00:41→16:54)
[2019-08-18 04:18] LABS: BASOPHILS # (AUTO) 0.05 x10^3/uL (0-0.1); BASOPHILS % (AUTO) 0 % (0-1); EOSINOPHILS # (AUTO) 0.04 x10^3/uL (0-0.4); EOSINOPHILS % (AUTO) 0 % (1-7); LYMPHOCYTES % (AUTO) 5 % (22-44); MD NO; MEAN CORPUSCULAR HEMOGLOBIN 30.4 pg (27.5-34.5); MEAN CORPUSCULAR HGB CONC 32.8 g/dL (33.2-36.2); MEAN CORPUSCULAR VOLUME 92.8 fL (81-97); MEAN PLATELET VOLUME 8.7 fL (7.4-10.4); MONOCYTES # (AUTO) 0.68 x10^3/uL (0.2-0.8); MONOCYTES % (AUTO) 6 % (2-9); NEUTROPHILS # (AUTO) 10.63 x10^3/uL (1.8-6.8); NEUTROPHILS % (AUTO) 89 % (42-75); PLATELET COUNT 377 x10^3/uL (130-400); RED CELL DISTRIBUTION WIDTH 16.2 % (9.4-14.8)
[2019-08-18 04:29] LABS: ANION GAP 4 mmol/L (5-15); CALCIUM 8.7 mg/dL (8.5-10.1); CHLORIDE 107 mmol/L (98-107); CREATININE 0.51 mg/dL (0.7-1.3)
[2019-08-18] MEDS: INSULIN REGULAR HIGH DOSE Q6H X 48HRS SQ-INSULIN SCH ×4 (05:00→23:42)
[2019-08-18] MEDS ORDERED: OMNIPAQUE 350 MG/ML, 100ML BOTTLE ONE (05:28)
[2019-08-18] MEDS: PANTOPRAZOLE 40 MG IV IVPush SCH (07:46)
[2019-08-18] MEDS: ALBUMIN HUMAN 25% 100 ML IV SCH (08:29)
[2019-08-18] MEDS: FUROSEMIDE 20 MG/2 ML IV SCH (08:30)
[2019-08-18] MEDS: METHYLNALTREXONE 12 MG/0.6 ML SYR SQ SCH (08:30)
[2019-08-18] MEDS: POTASSIUM CHLORIDE 10% 20 MEQ/15 ML UDC PO SCH (08:30)
[2019-08-18] MEDS: SODIUM CHLORIDE FLUSH 10ML SYR IVF SCH ×2 (08:31→21:34)
[2019-08-18] MEDS: CEFTRIAXONE PMX 2GM/50ML 50 ML IV SCH (11:37)
[2019-08-18] MEDS: DAPTOMYCIN 725 MG in SODIUM CHLORIDE 0.9% 100 ML IVPB SCH (13:40)
[2019-08-19] MEDS: HEPARIN 5,000 UNITS/ML, 1ML SQ SCH ×3 (02:18→16:56)
[2019-08-19 03:58] LABS: MEAN CORPUSCULAR HEMOGLOBIN 29.5 pg (27.5-34.5); MEAN CORPUSCULAR HGB CONC 32.1 g/dL (33.2-36.2); MEAN CORPUSCULAR VOLUME 92.1 fL (81-97); MEAN PLATELET VOLUME 8.2 fL (7.4-10.4); PLATELET COUNT 359 x10^3/uL (130-400); RED BLOOD COUNT 2.47 x10^6/uL (4.38-5.82); RED CELL DISTRIBUTION WIDTH 16.2 % (9.4-14.8)
[2019-08-19 04:05] LABS: ALANINE AMINOTRANSFERASE 48 U/L (12-78); ALBUMIN 1.6 g/dL (3.4-5.0); ANION GAP 5 mmol/L (5-15); CALCIUM 8.2 mg/dL (8.5-10.1); CHLORIDE 112 mmol/L (98-107); CREATININE 0.53 mg/dL (0.7-1.3)
[2019-08-19 04:07] LABS: ALKALINE PHOSPHATASE 99 U/L (45-117); BILIRUBIN,TOTAL 0.9 mg/dL (0.2-1.0); TOTAL PROTEIN 5.4 g/dL (6.4-8.2)
[2019-08-19 04:24] LABS: BASOPHILS # (AUTO) 0.05 x10^3/uL (0-0.1); BASOPHILS % (AUTO) 1 % (0-1); EOSINOPHILS # (AUTO) 0.02 x10^3/uL (0-0.4); EOSINOPHILS % (AUTO) 0 % (1-7); LYMPHOCYTES # (AUTO) 0.61 x10^3/uL (1-3.4); LYMPHOCYTES % (AUTO) 6 % (22-44); MD SCAN; MONOCYTES # (AUTO) 0.77 x10^3/uL (0.2-0.8); MONOCYTES % (AUTO) 7 % (2-9); NEUTROPHILS % (AUTO) 87 % (42-75)
[2019-08-19] MEDS: INSULIN REGULAR HIGH DOSE Q6H X 48HRS SQ-INSULIN SCH ×4 (05:00→23:00)
[2019-08-19] MEDS: SODIUM CHLORIDE FLUSH 10ML SYR IVF SCH ×2 (09:46→20:16)
[2019-08-19] MEDS: PANTOPRAZOLE 40 MG IV IVPush SCH (09:46)
[2019-08-19] MEDS: ALBUMIN HUMAN 25% 100 ML IV SCH (09:46)
[2019-08-19] MEDS: FUROSEMIDE 20 MG/2 ML IV SCH (11:13)
[2019-08-19] MEDS: CEFTRIAXONE PMX 2GM/50ML 50 ML IV SCH (11:13)
[2019-08-19] MEDS ORDERED: NALOXONE 1 MG/ML, 2ML ONE (11:35)
[2019-08-19] MEDS ORDERED: FENTANYL PF 100 MCG/2ML ONE (11:35)
[2019-08-19] MEDS ORDERED: LIDOCAINE 1%, 10ML ONE (11:59)
[2019-08-19] MEDS: KETOROLAC 30 MG/1 ML IVPush PRN ×2 (13:10→23:34)
[2019-08-19] MEDS: POTASSIUM CHLORIDE 10% 20 MEQ/15 ML UDC PO SCH (13:13)
[2019-08-19] MEDS: DAPTOMYCIN 725 MG in SODIUM CHLORIDE 0.9% 100 ML IVPB SCH (14:06)
[2019-08-19] MEDS ORDERED: FILTER, DISP 1.2 MICRON FOR TPN/PVN IV PRN (15:30)
[2019-08-19] MEDS ORDERED: TPN PER PHARMACY MC SCH (15:30)
[2019-08-19] MEDS: ACETAMINOPHEN 650 MG SUPP PR PRN (16:35)
[2019-08-19] MEDS ORDERED: OLIV IV SCH (17:00)
[2019-08-19] MEDS ORDERED: DEXTROSE 10% 500 ML IV PRN (17:00)
[2019-08-19] MEDS ORDERED: [UNRECOGNIZED DRUG - OTHER] IV SCH (17:00)
[2019-08-19] MEDS ORDERED: FISH OIL IV SCH (17:00)
[2019-08-19] MEDS ORDERED: DEXTROSE 50%, 50ML SYRINGE IVPush PRN (17:00)
[2019-08-19] MEDS ORDERED: DEXTROSE 70% IV SCH (17:00)
[2019-08-19] MEDS ORDERED: FAT EMUL IV SCH (17:00)
[2019-08-19] MEDS ORDERED: AMINO ACID 10% IV SCH (17:00)
[2019-08-19] MEDS ORDERED: MCT IV SCH (17:00)
[2019-08-19] MEDS ORDERED: SODIUM CHLORIDE 0.9% 1,000ML IVBOLUS ONE (17:00)
[2019-08-19] MEDS ORDERED: SOY IV SCH (17:00)
[2019-08-20] MEDS: HEPARIN 5,000 UNITS/ML, 1ML SQ SCH ×3 (01:25→16:58)
[2019-08-20] MEDS: HYDROmorphone 2 MG/ML, 1ML IVPush PRN ×2 (01:27→10:21)
[2019-08-20 04:29] LABS: ANION GAP 5 mmol/L (5-15); CALCIUM 8.5 mg/dL (8.5-10.1); CHLORIDE 111 mmol/L (98-107); CREATININE 0.72 mg/dL (0.7-1.3)
[2019-08-20 04:34] LABS: PREALBUMIN 8.1 mg/dL (20.0-40.0); TRIGLYCERIDES 88 mg/dL (50-200)
[2019-08-20 04:42] LABS: MEAN CORPUSCULAR HEMOGLOBIN 29.6 pg (27.5-34.5); MEAN CORPUSCULAR HGB CONC 32.3 g/dL (33.2-36.2); MEAN CORPUSCULAR VOLUME 91.8 fL (81-97); MEAN PLATELET VOLUME 9.1 fL (7.4-10.4); PLATELET COUNT 367 x10^3/uL (130-400); RED BLOOD COUNT 2.47 x10^6/uL (4.38-5.82); RED CELL DISTRIBUTION WIDTH 16.1 % (9.4-14.8)
[2019-08-20 04:56] LABS: MD YES
[2019-08-20 04:58] LABS: ANISOCYTOSIS 1+; BAND#(MANUAL) 2.85 x10^3/uL; BANDS%(MANUAL) 23 % (0-7); LYMPHS% (MANUAL) 4 % (22-44); MONOS#(MANUAL) 0.99 x10^3/uL (0.3-2.7); MONOS% (MANUAL) 8 % (2-9); POLYCHROMASIA 1+; SEG#(MANUAL) 8.06 x10^3/uL (1.8-6.8); SEGS% (MANUAL) 65 % (42-75)
[2019-08-20 04:59] LABS: <PLATELET ESTIMATE> ADEQUATE; <PLT MORPHOLOGY> NORMAL PLT MORPH
[2019-08-20] MEDS: INSULIN REGULAR HIGH DOSE Q6H X 48HRS SQ-INSULIN SCH ×3 (05:00→16:58)
[2019-08-20] MEDS: KETOROLAC 30 MG/1 ML IVPush PRN ×2 (06:23→20:12)
[2019-08-20] MEDS: PANTOPRAZOLE 40 MG IV IVPush SCH (07:57)
[2019-08-20] MEDS: ALBUMIN HUMAN 25% 100 ML IV SCH (07:57)
[2019-08-20] MEDS: SODIUM CHLORIDE FLUSH 10ML SYR IVF SCH ×2 (08:01→20:12)
[2019-08-20] MEDS: METHYLNALTREXONE 12 MG/0.6 ML SYR SQ SCH (08:50)
[2019-08-20] MEDS: FUROSEMIDE 20 MG/2 ML IV SCH (08:50)
[2019-08-20] MEDS: MICAFUNGIN 100 MG in SODIUM CHLORIDE 0.9% 100 ML IV SCH (10:27)
[2019-08-20] MEDS ORDERED: METHYLENE BLUE 10 MG/ML 10ML INJ ONE (11:30)
[2019-08-20] MEDS: CEFTRIAXONE PMX 2GM/50ML 50 ML IV SCH (12:31)
[2019-08-20] MEDS: DAPTOMYCIN 725 MG in SODIUM CHLORIDE 0.9% 100 ML IVPB SCH (13:05)
[2019-08-20] MEDS ORDERED: FISH OIL IV SCH (17:00)
[2019-08-20] MEDS ORDERED: AMINO ACID 10% IV SCH (17:00)
[2019-08-20] MEDS ORDERED: FAT EMUL IV SCH (17:00)
[2019-08-20] MEDS ORDERED: OLIV IV SCH (17:00)
[2019-08-20] MEDS ORDERED: [UNRECOGNIZED DRUG - OTHER] IV SCH (17:00)
[2019-08-20] MEDS ORDERED: DEXTROSE 70% IV SCH (17:00)
[2019-08-20] MEDS ORDERED: SOY IV SCH (17:00)
[2019-08-20] MEDS ORDERED: MCT IV SCH (17:00)
[2019-08-20] MEDS: ACETAMINOPHEN 650 MG SUPP PR PRN (18:31)
[2019-08-21] MEDS: HEPARIN 5,000 UNITS/ML, 1ML SQ SCH ×3 (00:31→21:00)
[2019-08-21] MEDS: INSULIN REGULAR HIGH DOSE Q6H X 48HRS SQ-INSULIN SCH ×5 (00:31→23:11)
[2019-08-21 04:46] LABS: ANION GAP 8 mmol/L (5-15); CALCIUM 9.1 mg/dL (8.5-10.1); CHLORIDE 110 mmol/L (98-107); CREATININE 0.58 mg/dL (0.7-1.3)
[2019-08-21 04:58] LABS: MEAN CORPUSCULAR HEMOGLOBIN 29.6 pg (27.5-34.5); MEAN CORPUSCULAR HGB CONC 32.3 g/dL (33.2-36.2); MEAN CORPUSCULAR VOLUME 91.5 fL (81-97); MEAN PLATELET VOLUME 8.2 fL (7.4-10.4); PLATELET COUNT 379 x10^3/uL (130-400); RED BLOOD COUNT 2.39 x10^6/uL (4.38-5.82); RED CELL DISTRIBUTION WIDTH 16.2 % (9.4-14.8)
[2019-08-21 05:38] LABS: MD YES
[2019-08-21 05:45] LABS: BAND#(MANUAL) 2.32 x10^3/uL; BANDS%(MANUAL) 23 % (0-7); EOS% (MANUAL) 1 % (1-7); LYMPHS% (MANUAL) 4 % (22-44); MONOS#(MANUAL) 0.51 x10^3/uL (0.3-2.7); MONOS% (MANUAL) 5 % (2-9); SEG#(MANUAL) 6.77 x10^3/uL (1.8-6.8); SEGS% (MANUAL) 67 % (42-75)
[2019-08-21 05:46] LABS: ANISOCYTOSIS 1+
[2019-08-21 05:47] LABS: <PLATELET ESTIMATE> ADEQUATE; <PLT MORPHOLOGY> NORMAL PLT MORPH
[2019-08-21] MEDS: ALBUTEROL/IPRATROPIUM 2.5MG/0.5MG, 3 ML INLINE PRN (08:05)
[2019-08-21] MEDS: ALBUMIN HUMAN 25% 100 ML IV SCH (08:51)
[2019-08-21] MEDS: SODIUM CHLORIDE FLUSH 10ML SYR IVF SCH ×2 (08:53→20:31)
[2019-08-21] MEDS: PANTOPRAZOLE 40 MG IV IVPush SCH (08:57)
[2019-08-21] MEDS ORDERED: ROCURONIUM 10MG/ML,5ML ONE ×3 (09:50→19:06)
[2019-08-21] MEDS ORDERED: EPINEPHRINE 1 MG/ML, 1ML ONE ×2 (09:50→19:06)
[2019-08-21] MEDS ORDERED: PHENYLEPHRINE 10 MG/ML ONE ×2 (09:50→19:06)
[2019-08-21] MEDS: MICAFUNGIN 100 MG in SODIUM CHLORIDE 0.9% 100 ML IV SCH (10:40)
[2019-08-21] MEDS: FUROSEMIDE 20 MG/2 ML IV SCH (10:40)
[2019-08-21] MEDS: CEFTRIAXONE PMX 2GM/50ML 50 ML IV SCH (11:42)
[2019-08-21] MEDS: HYDROmorphone 2 MG/ML, 1ML IVPush PRN ×2 (12:49→20:31)
[2019-08-21] MEDS: DAPTOMYCIN 725 MG in SODIUM CHLORIDE 0.9% 100 ML IVPB SCH (14:13)
[2019-08-21] MEDS ORDERED: FENTANYL PF 250 MCG/5ML ONE (14:42)
[2019-08-21] MEDS ORDERED: FILTER, DISP 1.2 MICRON FOR TPN/PVN IV PRN (17:00)
[2019-08-21] MEDS ORDERED: [UNRECOGNIZED DRUG - OTHER] IV SCH (17:00)
[2019-08-21] MEDS ORDERED: AMINO ACID 10% IV SCH (17:00)
[2019-08-21] MEDS ORDERED: DEXTROSE 70% IV SCH (17:00)
[2019-08-21] MEDS ORDERED: NOREPINEPHRINE 8 MG in SODIUM CHLORIDE 0.9% 242 ML IV PRN (19:30)
[2019-08-21] MEDS ORDERED: LACTATED RINGERS 1,000 ML IVBOLUS ONE (19:30)
[2019-08-21 21:05] VITALS: BP 109/35
[2019-08-21 21:24] VITALS: BP 115/55
[2019-08-21] MEDS: ACETAMINOPHEN 650 MG SUPP PR PRN (21:48)
[2019-08-21 22:11] VITALS: BP 98/41
[2019-08-22] VITALS (7 sets, daily range): BP systolic 83–136; BP diastolic 50–74
[2019-08-22] MEDS ORDERED: ALBUMIN HUMAN 25% 100 ML IV ONE ×2
[2019-08-22] MEDS: HYDROmorphone 2 MG/ML, 1ML IVPush PRN ×5 (01:12→20:27)
[2019-08-22] MEDS: HEPARIN 5,000 UNITS/ML, 1ML SQ SCH ×3 (05:00→20:26)
[2019-08-22] MEDS: INSULIN REGULAR HIGH DOSE Q6H X 48HRS SQ-INSULIN SCH ×4 (05:12→22:53)
[2019-08-22 06:15] LABS: MEAN CORPUSCULAR HEMOGLOBIN 29.2 pg (27.5-34.5); MEAN CORPUSCULAR VOLUME 88.4 fL (81-97); MEAN PLATELET VOLUME 8.4 fL (7.4-10.4); PLATELET COUNT 339 x10^3/uL (130-400); RED BLOOD COUNT 3.07 x10^6/uL (4.38-5.82); RED CELL DISTRIBUTION WIDTH 17.8 % (9.4-14.8)
[2019-08-22 06:21] LABS: ANION GAP 8 mmol/L (5-15); CALCIUM 8.3 mg/dL (8.5-10.1); CHLORIDE 111 mmol/L (98-107); CREATININE 0.88 mg/dL (0.7-1.3)
[2019-08-22 06:26] LABS: MD YES
[2019-08-22 06:29] LABS: <PLATELET ESTIMATE> ADEQUATE; <PLT MORPHOLOGY> NORMAL PLT MORPH; ANISOCYTOSIS 1+; BAND#(MANUAL) 1.81 x10^3/uL; BANDS%(MANUAL) 14 % (0-7); LYMPH#(MANUAL) 0.52 x10^3/uL (1-3.4); LYMPHS% (MANUAL) 4 % (22-44); MONOS#(MANUAL) 0.39 x10^3/uL (0.3-2.7); MONOS% (MANUAL) 3 % (2-9); SEG#(MANUAL) 10.19 x10^3/uL (1.8-6.8); SEGS% (MANUAL) 79 % (42-75)
[2019-08-22 06:30] LABS: TOXIC GRAN 1+
[2019-08-22 06:31] LABS: POLYCHROMASIA 1+
[2019-08-22 06:33] LABS: PMNS WITH VACUOLES 1+
[2019-08-22] MEDS: ALBUMIN HUMAN 25% 100 ML IV SCH (08:20)
[2019-08-22] MEDS: FUROSEMIDE 20 MG/2 ML IV SCH (08:20)
[2019-08-22] MEDS: PIPERACILLIN/TAZO/PMX 3.375GM 50 ML IV SCH ×3 (09:28→20:27)
[2019-08-22] MEDS: PANTOPRAZOLE 40 MG IV IVPush SCH (09:33)
[2019-08-22] MEDS: SODIUM CHLORIDE FLUSH 10ML SYR IVF SCH ×2 (09:33→20:27)
[2019-08-22] MEDS: MICAFUNGIN 100 MG in SODIUM CHLORIDE 0.9% 100 ML IV SCH (10:03)
[2019-08-22] MEDS ORDERED: MIDAZOLAM 1 MG/ML, 2ML ONE (10:20)
[2019-08-22] MEDS ORDERED: FENTANYL PF 100 MCG/2ML ONE (10:20)
[2019-08-22] MEDS ORDERED: ROCURONIUM 10MG/ML,5ML ONE (14:32)
[2019-08-22] MEDS ORDERED: PHENYLEPHRINE 10 MG/ML ONE (14:32)
[2019-08-22] MEDS ORDERED: VASOPRESSIN 20 UNIT/ML, 1ML ONE (14:32)
[2019-08-22] MEDS: ACETAMINOPHEN 650 MG SUPP PR PRN (16:27)
[2019-08-22] MEDS ORDERED: FISH OIL IV SCH (17:00)
[2019-08-22] MEDS ORDERED: [UNRECOGNIZED DRUG - OTHER] IV SCH (17:00)
[2019-08-22] MEDS ORDERED: FAT EMUL IV SCH (17:00)
[2019-08-22] MEDS ORDERED: SOY IV SCH (17:00)
[2019-08-22] MEDS ORDERED: OLIV IV SCH (17:00)
[2019-08-22] MEDS ORDERED: MCT IV SCH (17:00)
[2019-08-22] MEDS ORDERED: FILTER, DISP 1.2 MICRON FOR TPN/PVN IV PRN (17:00)
[2019-08-22] MEDS ORDERED: DEXTROSE 70% IV SCH (17:00)
[2019-08-22] MEDS ORDERED: AMINO ACID 10% IV SCH (17:00)
[2019-08-22] MEDS: METHYLNALTREXONE 12 MG/0.6 ML SYR SQ SCH (20:27)
[2019-08-23] MEDS: HYDROmorphone 2 MG/ML, 1ML IVPush PRN ×4 (01:08→21:08)
[2019-08-23] MEDS: PIPERACILLIN/TAZO/PMX 3.375GM 50 ML IV SCH ×4 (03:59→21:08)
[2019-08-23] MEDS: INSULIN REGULAR HIGH DOSE Q6H X 48HRS SQ-INSULIN SCH (05:05)
[2019-08-23] MEDS: HEPARIN 5,000 UNITS/ML, 1ML SQ SCH ×3 (05:05→21:08)
[2019-08-23 05:28] LABS: MEAN CORPUSCULAR HEMOGLOBIN 28.7 pg (27.5-34.5); MEAN CORPUSCULAR HGB CONC 32.7 g/dL (33.2-36.2); MEAN CORPUSCULAR VOLUME 87.6 fL (81-97); MEAN PLATELET VOLUME 8.6 fL (7.4-10.4); PLATELET COUNT 325 x10^3/uL (130-400); RED BLOOD COUNT 2.84 x10^6/uL (4.38-5.82); RED CELL DISTRIBUTION WIDTH 18.8 % (9.4-14.8)
[2019-08-23 05:31] LABS: ANION GAP 8 mmol/L (5-15); CALCIUM 8.2 mg/dL (8.5-10.1); CHLORIDE 109 mmol/L (98-107); CREATININE 1.15 mg/dL (0.7-1.3)
[2019-08-23 06:01] LABS: MD YES
[2019-08-23 06:03] LABS: ANISOCYTOSIS 1+; BAND#(MANUAL) 0.69 x10^3/uL; BANDS%(MANUAL) 4 % (0-7); LYMPH#(MANUAL) 1.55 x10^3/uL (1-3.4); LYMPHS% (MANUAL) 9 % (22-44); METAMYELOCYTES# (MANUAL) 0.52 x10^3/uL (0-0); METAMYELOCYTES% (MANUAL) 3 % (0-1); MONOS% (MANUAL) 7 % (2-9); MYELOCYTES# (MANUAL) 0.17 x10^3/uL (0-0); MYELOCYTES% (MANUAL) 1 % (0-0); POLYCHROMASIA 1+; SEG#(MANUAL) 13.07 x10^3/uL (1.8-6.8); SEGS% (MANUAL) 76 % (42-75)
[2019-08-23 06:04] LABS: TOXIC GRAN 1+
[2019-08-23 06:05] LABS: <PLATELET ESTIMATE> ADEQUATE; <PLT MORPHOLOGY> NORMAL PLT MORPH
[2019-08-23] MEDS: PANTOPRAZOLE 40 MG IV IVPush SCH (07:44)
[2019-08-23] MEDS: ALBUMIN HUMAN 25% 100 ML IV SCH ×2 (09:54→16:58)
[2019-08-23] MEDS: SODIUM CHLORIDE FLUSH 10ML SYR IVF SCH ×2 (09:55→21:06)
[2019-08-23] MEDS: [UNRECOGNIZED DRUG - OTHER] SQ-INSULIN SCH ×3 (10:06→21:07)
[2019-08-23] MEDS: MICAFUNGIN 100 MG in SODIUM CHLORIDE 0.9% 100 ML IV SCH (10:49)
[2019-08-23] MEDS: FILTER, DISP 1.2 MICRON FOR TPN/PVN IV PRN (16:48)
[2019-08-23] MEDS ORDERED: [UNRECOGNIZED DRUG - OTHER] IV SCH (17:00)
[2019-08-23] MEDS ORDERED: AMINO ACID 10% IV SCH (17:00)
[2019-08-23] MEDS ORDERED: FAT EMUL IV SCH (17:00)
[2019-08-23] MEDS ORDERED: FISH OIL IV SCH (17:00)
[2019-08-23] MEDS ORDERED: SOY IV SCH (17:00)
[2019-08-23] MEDS ORDERED: MCT IV SCH (17:00)
[2019-08-23] MEDS ORDERED: OLIV IV SCH (17:00)
[2019-08-23] MEDS ORDERED: DEXTROSE 70% IV SCH (17:00)
[2019-08-23] MEDS ORDERED: HYDROmorphone 1 MG/ML, 1ML INJ ONE (20:45)
[2019-08-24] VITALS (9 sets, daily range): BP systolic 137–156; BP diastolic 63–76
[2019-08-24] MEDS ORDERED: DIPHENHYDRAMINE 25 MG CAPSULE PO ONE (00:30)
[2019-08-24] MEDS: ALBUMIN HUMAN 25% 100 ML IV SCH ×3 (01:19→16:54)
[2019-08-24] MEDS: HYDROmorphone 2 MG/ML, 1ML IVPush PRN ×5 (01:19→20:29)
[2019-08-24] MEDS: PIPERACILLIN/TAZO/PMX 3.375GM 50 ML IV SCH ×4 (03:24→20:28)
[2019-08-24] MEDS: [UNRECOGNIZED DRUG - OTHER] SQ-INSULIN SCH ×4 (03:25→20:33)
[2019-08-24 03:44] LABS: ANION GAP 4 mmol/L (5-15); CALCIUM 8.8 mg/dL (8.5-10.1); CHLORIDE 111 mmol/L (98-107); CREATININE 0.81 mg/dL (0.7-1.3)
[2019-08-24 04:00] LABS: MEAN CORPUSCULAR HEMOGLOBIN 28.5 pg (27.5-34.5); MEAN CORPUSCULAR HGB CONC 32.3 g/dL (33.2-36.2); MEAN PLATELET VOLUME 8.5 fL (7.4-10.4); PLATELET COUNT 277 x10^3/uL (130-400); RED BLOOD COUNT 2.19 x10^6/uL (4.38-5.82); RED CELL DISTRIBUTION WIDTH 18.3 % (9.4-14.8)
[2019-08-24 04:25] LABS: MD YES
[2019-08-24 04:28] LABS: ANISOCYTOSIS 1+; BAND#(MANUAL) 0.81 x10^3/uL; BANDS%(MANUAL) 6 % (0-7); EOS#(MANUAL) 0.14 x10^3/uL (0.0-0.4); EOS% (MANUAL) 1 % (1-7); LYMPH#(MANUAL) 1.49 x10^3/uL (1-3.4); LYMPHS% (MANUAL) 11 % (22-44); METAMYELOCYTES# (MANUAL) 0.27 x10^3/uL (0-0); METAMYELOCYTES% (MANUAL) 2 % (0-1); MONOS#(MANUAL) 0.81 x10^3/uL (0.3-2.7); MONOS% (MANUAL) 6 % (2-9); POLYCHROMASIA 1+; SEG#(MANUAL) 9.99 x10^3/uL (1.8-6.8); SEGS% (MANUAL) 74 % (42-75)
[2019-08-24 04:29] LABS: <PLATELET ESTIMATE> ADEQUATE; <PLT MORPHOLOGY> NORMAL PLT MORPH
[2019-08-24] MEDS: HEPARIN 5,000 UNITS/ML, 1ML SQ SCH ×3 (05:00→20:28)
[2019-08-24] MEDS ORDERED: HYDROmorphone 1 MG/ML, 1ML INJ ONE (05:48)
[2019-08-24] MEDS: PANTOPRAZOLE 40 MG IV IVPush SCH (08:14)
[2019-08-24] MEDS: SODIUM CHLORIDE FLUSH 10ML SYR IVF SCH ×2 (09:14→20:28)
[2019-08-24] MEDS: MICAFUNGIN 100 MG in SODIUM CHLORIDE 0.9% 100 ML IV SCH (10:22)
[2019-08-24 11:14] LABS: GASTRIC OCCULT BLD POSITIVE (NEGATIVE)
[2019-08-24 11:21] LABS: GASTRIC PH 7+ (1-7)
[2019-08-24] MEDS: FILTER, DISP 1.2 MICRON FOR TPN/PVN IV PRN (16:54)
[2019-08-24] MEDS ORDERED: FAT EMUL IV SCH (17:00)
[2019-08-24] MEDS ORDERED: [UNRECOGNIZED DRUG - OTHER] IV SCH (17:00)
[2019-08-24] MEDS ORDERED: DEXTROSE 70% IV SCH (17:00)
[2019-08-24] MEDS ORDERED: FISH OIL IV SCH (17:00)
[2019-08-24] MEDS ORDERED: OLIV IV SCH (17:00)
[2019-08-24] MEDS ORDERED: SOY IV SCH (17:00)
[2019-08-24] MEDS ORDERED: MCT IV SCH (17:00)
[2019-08-24] MEDS ORDERED: AMINO ACID 10% IV SCH (17:00)
[2019-08-24] MEDS: METHYLNALTREXONE 12 MG/0.6 ML SYR SQ SCH (20:28)
[2019-08-25] MEDS: HYDROmorphone 2 MG/ML, 1ML IVPush PRN ×5 (00:33→21:20)
[2019-08-25] MEDS: ALBUMIN HUMAN 25% 100 ML IV SCH ×3 (00:33→16:21)
[2019-08-25] MEDS: PIPERACILLIN/TAZO/PMX 3.375GM 50 ML IV SCH ×4 (02:03→20:49)
[2019-08-25] MEDS: [UNRECOGNIZED DRUG - OTHER] SQ-INSULIN SCH (03:30)
[2019-08-25] MEDS: HEPARIN 5,000 UNITS/ML, 1ML SQ SCH ×3 (04:14→20:43)
[2019-08-25 04:29] LABS: MEAN CORPUSCULAR HEMOGLOBIN 29.7 pg (27.5-34.5); MEAN CORPUSCULAR HGB CONC 33.3 g/dL (33.2-36.2); MEAN PLATELET VOLUME 8.1 fL (7.4-10.4); PLATELET COUNT 261 x10^3/uL (130-400); RED BLOOD COUNT 2.84 x10^6/uL (4.38-5.82); RED CELL DISTRIBUTION WIDTH 16.4 % (9.4-14.8)
[2019-08-25 04:35] LABS: ANION GAP 5 mmol/L (5-15); CHLORIDE 110 mmol/L (98-107)
[2019-08-25 04:49] LABS: MD YES
[2019-08-25 04:53] LABS: BAND#(MANUAL) 1.54 x10^3/uL; BANDS%(MANUAL) 12 % (0-7); BASOS#(MANUAL) 0.13 x10^3/uL (0-0.1); BASOS% (MANUAL) 1 % (0-1); EOS#(MANUAL) 0.26 x10^3/uL (0.0-0.4); EOS% (MANUAL) 2 % (1-7); LYMPH#(MANUAL) 1.02 x10^3/uL (1-3.4); LYMPHS% (MANUAL) 8 % (22-44); METAMYELOCYTES# (MANUAL) 0.77 x10^3/uL (0-0); METAMYELOCYTES% (MANUAL) 6 % (0-1); MONOS#(MANUAL) 0.13 x10^3/uL (0.3-2.7); MONOS% (MANUAL) 1 % (2-9); MYELOCYTES# (MANUAL) 0.13 x10^3/uL (0-0); MYELOCYTES% (MANUAL) 1 % (0-0); SEG#(MANUAL) 8.83 x10^3/uL (1.8-6.8); SEGS% (MANUAL) 69 % (42-75)
[2019-08-25 04:54] LABS: ANISOCYTOSIS 1+; POLYCHROMASIA 1+
[2019-08-25 04:55] LABS: <PLATELET ESTIMATE> ADEQUATE; <PLT MORPHOLOGY> NORMAL PLT MORPH; TOXIC GRAN 1+
[2019-08-25] MEDS ORDERED: POTASSIUM CHLORIDE 40 MEQ in SODIUM CHLORIDE 0.9% 100 ML IV ONE (08:00)
[2019-08-25] MEDS: SODIUM CHLORIDE FLUSH 10ML SYR IVF SCH ×2 (08:03→20:50)
[2019-08-25] MEDS: PANTOPRAZOLE 40 MG IV IVPush SCH (08:03)
[2019-08-25] MEDS ORDERED: [UNRECOGNIZED DRUG - OTHER] IV SCH ×2 (09:00→17:00)
[2019-08-25] MEDS ORDERED: SOY IV SCH ×2 (09:00→17:00)
[2019-08-25] MEDS: [UNRECOGNIZED DRUG - REMARK] SQ-INSULIN SCH ×2 (09:00→16:20)
[2019-08-25] MEDS ORDERED: AMINO ACID 10% IV SCH ×2 (09:00→17:00)
[2019-08-25] MEDS ORDERED: FAT EMUL IV SCH ×2 (09:00→17:00)
[2019-08-25] MEDS ORDERED: DEXTROSE 70% IV SCH ×2 (09:00→17:00)
[2019-08-25] MEDS ORDERED: OLIV IV SCH ×2 (09:00→17:00)
[2019-08-25] MEDS ORDERED: FISH OIL IV SCH ×2 (09:00→17:00)
[2019-08-25] MEDS ORDERED: MCT IV SCH ×2 (09:00→17:00)
[2019-08-25] MEDS: hydrALAzine 20 MG/ML, 1ML IVPush PRN ×2 (10:30→15:19)
[2019-08-25] MEDS: MICAFUNGIN 100 MG in SODIUM CHLORIDE 0.9% 100 ML IV SCH (11:31)
[2019-08-25] MEDS: FILTER, DISP 1.2 MICRON FOR TPN/PVN IV PRN (16:22)
[2019-08-25] MEDS: ACETAMINOPHEN 650 MG SUPP PR PRN (16:31)
[2019-08-26] MEDS: ALBUMIN HUMAN 25% 100 ML IV SCH ×3 (00:47→17:01)
[2019-08-26] MEDS: [UNRECOGNIZED DRUG - REMARK] SQ-INSULIN SCH ×3 (00:50→17:00)
[2019-08-26] MEDS: PIPERACILLIN/TAZO/PMX 3.375GM 50 ML IV SCH (02:45)
[2019-08-26] MEDS: HYDROmorphone 2 MG/ML, 1ML IVPush PRN ×5 (03:01→20:13)
[2019-08-26] MEDS: HEPARIN 5,000 UNITS/ML, 1ML SQ SCH (03:59)
[2019-08-26 05:44] LABS: MEAN CORPUSCULAR HEMOGLOBIN 29.5 pg (27.5-34.5); MEAN CORPUSCULAR HGB CONC 33.2 g/dL (33.2-36.2); MEAN CORPUSCULAR VOLUME 88.9 fL (81-97); MEAN PLATELET VOLUME 8.4 fL (7.4-10.4); PLATELET COUNT 274 x10^3/uL (130-400); RED BLOOD COUNT 3.03 x10^6/uL (4.38-5.82); RED CELL DISTRIBUTION WIDTH 17.3 % (9.4-14.8)
[2019-08-26 05:55] LABS: ALBUMIN 2.9 g/dL (3.4-5.0); ANION GAP 6 mmol/L (5-15); CALCIUM 9.2 mg/dL (8.5-10.1); CHLORIDE 110 mmol/L (98-107)
[2019-08-26 06:03] LABS: ALANINE AMINOTRANSFERASE 30 U/L (12-78); ALKALINE PHOSPHATASE 67 U/L (45-117); BILIRUBIN,TOTAL 2.8 mg/dL (0.2-1.0); CREATININE 0.57 mg/dL (0.7-1.3); PREALBUMIN 10.6 mg/dL (20.0-40.0); TOTAL PROTEIN 6.2 g/dL (6.4-8.2)
[2019-08-26 06:10] LABS: MD YES
[2019-08-26 06:13] LABS: BAND#(MANUAL) 0.45 x10^3/uL; BANDS%(MANUAL) 4 % (0-7); EOS#(MANUAL) 0.11 x10^3/uL (0.0-0.4); EOS% (MANUAL) 1 % (1-7); LYMPH#(MANUAL) 1.24 x10^3/uL (1-3.4); LYMPHS% (MANUAL) 11 % (22-44); METAMYELOCYTES# (MANUAL) 1.02 x10^3/uL (0-0); METAMYELOCYTES% (MANUAL) 9 % (0-1); MONOS#(MANUAL) 0.45 x10^3/uL (0.3-2.7); MONOS% (MANUAL) 4 % (2-9); MYELOCYTES# (MANUAL) 0.68 x10^3/uL (0-0); MYELOCYTES% (MANUAL) 6 % (0-0); NRBC % (MANUAL) 1 % (0-1); SEG#(MANUAL) 7.35 x10^3/uL (1.8-6.8); SEGS% (MANUAL) 65 % (42-75)
[2019-08-26 06:14] LABS: <PLATELET ESTIMATE> ADEQUATE; ANISOCYTOSIS 1+; POLYCHROMASIA 1+; TOXIC GRAN 1+
[2019-08-26 06:16] LABS: LARGE PLATELETS 1+
[2019-08-26] MEDS: ACETAMINOPHEN 650 MG SUPP PR PRN (08:14)
[2019-08-26] MEDS: PANTOPRAZOLE 40 MG IV IVPush SCH (08:14)
[2019-08-26] MEDS: PIPERACILLIN/TAZO/PMX 4.5GM 100 ML IV SCH ×2 (08:14→17:01)
[2019-08-26] MEDS: SODIUM CHLORIDE FLUSH 10ML SYR IVF SCH ×2 (09:00→20:13)
[2019-08-26] MEDS: FUROSEMIDE 40 MG/4 ML IV SCH (10:56)
[2019-08-26] MEDS: MICAFUNGIN 100 MG in SODIUM CHLORIDE 0.9% 100 ML IV SCH (10:56)
[2019-08-26] MEDS ORDERED: MCT IV SCH (17:00)
[2019-08-26] MEDS ORDERED: DEXTROSE 70% IV SCH (17:00)
[2019-08-26] MEDS ORDERED: FISH OIL IV SCH (17:00)
[2019-08-26] MEDS ORDERED: FAT EMUL IV SCH (17:00)
[2019-08-26] MEDS ORDERED: [UNRECOGNIZED DRUG - OTHER] IV SCH (17:00)
[2019-08-26] MEDS ORDERED: OLIV IV SCH (17:00)
[2019-08-26] MEDS ORDERED: AMINO ACID 10% IV SCH (17:00)
[2019-08-26] MEDS ORDERED: SOY IV SCH (17:00)
[2019-08-26] MEDS: METHYLNALTREXONE 12 MG/0.6 ML SYR SQ SCH (20:13)
[2019-08-27] MEDS: PIPERACILLIN/TAZO/PMX 4.5GM 100 ML IV SCH ×3 (00:29→17:37)
[2019-08-27] MEDS: HYDROmorphone 2 MG/ML, 1ML IVPush PRN ×6 (00:30→21:09)
[2019-08-27] MEDS: [UNRECOGNIZED DRUG - REMARK] SQ-INSULIN SCH ×3 (00:33→17:00)
[2019-08-27] MEDS: ALBUMIN HUMAN 25% 100 ML IV SCH (02:08)
[2019-08-27 06:14] LABS: MEAN CORPUSCULAR HEMOGLOBIN 29.6 pg (27.5-34.5); MEAN CORPUSCULAR HGB CONC 33.3 g/dL (33.2-36.2); MEAN PLATELET VOLUME 8.8 fL (7.4-10.4); PLATELET COUNT 276 x10^3/uL (130-400); RED BLOOD COUNT 2.92 x10^6/uL (4.38-5.82); RED CELL DISTRIBUTION WIDTH 16.8 % (9.4-14.8)
[2019-08-27 06:27] LABS: ANION GAP 3 mmol/L (5-15); CALCIUM 9.6 mg/dL (8.5-10.1); CHLORIDE 104 mmol/L (98-107); CREATININE 0.54 mg/dL (0.7-1.3)
[2019-08-27 07:02] LABS: MD YES
[2019-08-27 07:04] LABS: BAND#(MANUAL) 0.57 x10^3/uL; BANDS%(MANUAL) 5 % (0-7); EOS#(MANUAL) 0.23 x10^3/uL (0.0-0.4); EOS% (MANUAL) 2 % (1-7); LYMPH#(MANUAL) 0.68 x10^3/uL (1-3.4); LYMPHS% (MANUAL) 6 % (22-44); METAMYELOCYTES# (MANUAL) 0.34 x10^3/uL (0-0); METAMYELOCYTES% (MANUAL) 3 % (0-1); MONOS#(MANUAL) 0.23 x10^3/uL (0.3-2.7); MONOS% (MANUAL) 2 % (2-9); MYELOCYTES# (MANUAL) 0.34 x10^3/uL (0-0); MYELOCYTES% (MANUAL) 3 % (0-0); SEG#(MANUAL) 9.01 x10^3/uL (1.8-6.8); SEGS% (MANUAL) 79 % (42-75)
[2019-08-27 07:05] LABS: <PLATELET ESTIMATE> ADEQUATE; <PLT MORPHOLOGY> NORMAL PLT MORPH; ANISOCYTOSIS 1+; POLYCHROMASIA 1+; TOXIC GRAN 1+
[2019-08-27] MEDS: PANTOPRAZOLE 40 MG IV IVPush SCH (08:44)
[2019-08-27] MEDS: FUROSEMIDE 40 MG/4 ML IV SCH (08:44)
[2019-08-27] MEDS: SODIUM CHLORIDE FLUSH 10ML SYR IVF SCH ×2 (08:45→21:00)
[2019-08-27] MEDS: ENOXAPARIN 40 MG/0.4 ML SQ SCH (11:01)
[2019-08-27] MEDS: MICAFUNGIN 100 MG in SODIUM CHLORIDE 0.9% 100 ML IV SCH (11:01)
[2019-08-27] MEDS: ONDANSETRON 2MG/ML, 2ML IVPush PRN (11:41)
[2019-08-27] MEDS ORDERED: FISH OIL IV SCH (17:00)
[2019-08-27] MEDS ORDERED: FAT EMUL IV SCH (17:00)
[2019-08-27] MEDS ORDERED: [UNRECOGNIZED DRUG - OTHER] IV SCH (17:00)
[2019-08-27] MEDS ORDERED: FILTER, DISP 1.2 MICRON FOR TPN/PVN IV PRN (17:00)
[2019-08-27] MEDS ORDERED: OLIV IV SCH (17:00)
[2019-08-27] MEDS ORDERED: SOY IV SCH (17:00)
[2019-08-27] MEDS ORDERED: MCT IV SCH (17:00)
[2019-08-27] MEDS ORDERED: AMINO ACID 10% IV SCH (17:00)
[2019-08-27] MEDS ORDERED: DEXTROSE 70% IV SCH (17:00)
[2019-08-28] MEDS: [UNRECOGNIZED DRUG - REMARK] SQ-INSULIN SCH ×3 (01:00→17:00)
[2019-08-28] MEDS: HYDROmorphone 2 MG/ML, 1ML IVPush PRN ×3 (01:35→17:27)
[2019-08-28] MEDS: PIPERACILLIN/TAZO/PMX 4.5GM 100 ML IV SCH ×3 (01:38→17:19)
[2019-08-28 05:10] LABS: MEAN CORPUSCULAR HEMOGLOBIN 29.6 pg (27.5-34.5); MEAN CORPUSCULAR HGB CONC 33.2 g/dL (33.2-36.2); MEAN CORPUSCULAR VOLUME 89.2 fL (81-97); MEAN PLATELET VOLUME 8.7 fL (7.4-10.4); PLATELET COUNT 302 x10^3/uL (130-400); RED BLOOD COUNT 3.09 x10^6/uL (4.38-5.82); RED CELL DISTRIBUTION WIDTH 17.4 % (9.4-14.8)
[2019-08-28 05:16] LABS: ANION GAP 1 mmol/L (5-15); CALCIUM 9.5 mg/dL (8.5-10.1); CHLORIDE 103 mmol/L (98-107); CREATININE 0.57 mg/dL (0.7-1.3)
[2019-08-28 05:53] LABS: MD YES
[2019-08-28 05:54] LABS: ANISOCYTOSIS 1+; BAND#(MANUAL) 0.47 x10^3/uL; BANDS%(MANUAL) 4 % (0-7); EOS#(MANUAL) 0.12 x10^3/uL (0.0-0.4); EOS% (MANUAL) 1 % (1-7); LYMPH#(MANUAL) 0.59 x10^3/uL (1-3.4); LYMPHS% (MANUAL) 5 % (22-44); METAMYELOCYTES# (MANUAL) 0.12 x10^3/uL (0-0); METAMYELOCYTES% (MANUAL) 1 % (0-1); MONOS#(MANUAL) 0.59 x10^3/uL (0.3-2.7); MONOS% (MANUAL) 5 % (2-9); MYELOCYTES# (MANUAL) 0.12 x10^3/uL (0-0); MYELOCYTES% (MANUAL) 1 % (0-0); POLYCHROMASIA 1+; SEG#(MANUAL) 9.79 x10^3/uL (1.8-6.8); SEGS% (MANUAL) 83 % (42-75); TOXIC GRAN 1+
[2019-08-28 05:55] LABS: <PLATELET ESTIMATE> ADEQUATE; <PLT MORPHOLOGY> NORMAL PLT MORPH
[2019-08-28] MEDS: PANTOPRAZOLE 40 MG IV IVPush SCH (08:11)
[2019-08-28] MEDS: FUROSEMIDE 40 MG/4 ML IV SCH (08:12)
[2019-08-28] MEDS: SODIUM CHLORIDE FLUSH 10ML SYR IVF SCH ×2 (10:11→22:22)
[2019-08-28] MEDS: MICAFUNGIN 100 MG in SODIUM CHLORIDE 0.9% 100 ML IV SCH (10:12)
[2019-08-28] MEDS: ENOXAPARIN 40 MG/0.4 ML SQ SCH (10:53)
[2019-08-28] MEDS: ACETAMINOPHEN 650 MG SUPP PR PRN (16:37)
[2019-08-28] MEDS ORDERED: FILTER, DISP 1.2 MICRON FOR TPN/PVN IV PRN (17:00)
[2019-08-28] MEDS ORDERED: MCT IV SCH (17:00)
[2019-08-28] MEDS ORDERED: DEXTROSE 70% IV SCH (17:00)
[2019-08-28] MEDS ORDERED: AMINO ACID 10% IV SCH (17:00)
[2019-08-28] MEDS ORDERED: SOY IV SCH (17:00)
[2019-08-28] MEDS ORDERED: FISH OIL IV SCH (17:00)
[2019-08-28] MEDS ORDERED: FAT EMUL IV SCH (17:00)
[2019-08-28] MEDS ORDERED: OLIV IV SCH (17:00)
[2019-08-28] MEDS ORDERED: [UNRECOGNIZED DRUG - OTHER] IV SCH (17:00)
[2019-08-28] MEDS: hydrALAzine 20 MG/ML, 1ML IVPush PRN (17:02)
[2019-08-28] MEDS ORDERED: METOPROLOL 1 MG/ML, 5ML IVPush PRN (18:00)
[2019-08-28] MEDS: METHYLNALTREXONE 12 MG/0.6 ML SYR SQ SCH (22:22)
[2019-08-29] MEDS: ACETAMINOPHEN 650 MG SUPP PR PRN (00:45)
[2019-08-29] MEDS: HYDROmorphone 2 MG/ML, 1ML IVPush PRN ×3 (00:45→13:23)
[2019-08-29] MEDS: PIPERACILLIN/TAZO/PMX 4.5GM 100 ML IV SCH ×3 (01:53→17:13)
[2019-08-29] MEDS: [UNRECOGNIZED DRUG - REMARK] SQ-INSULIN SCH (01:53)
[2019-08-29 05:11] LABS: MEAN CORPUSCULAR HEMOGLOBIN 28.7 pg (27.5-34.5); MEAN CORPUSCULAR HGB CONC 32.4 g/dL (33.2-36.2); MEAN CORPUSCULAR VOLUME 88.5 fL (81-97); MEAN PLATELET VOLUME 8.8 fL (7.4-10.4); PLATELET COUNT 328 x10^3/uL (130-400); RED BLOOD COUNT 3.36 x10^6/uL (4.38-5.82); RED CELL DISTRIBUTION WIDTH 17.1 % (9.4-14.8)
[2019-08-29 05:12] LABS: ANION GAP 6 mmol/L (5-15); CALCIUM 8.8 mg/dL (8.5-10.1); CHLORIDE 104 mmol/L (98-107)
[2019-08-29 05:13] LABS: CREATININE 0.74 mg/dL (0.7-1.3)
[2019-08-29 06:07] LABS: MD YES
[2019-08-29 06:08] LABS: BAND#(MANUAL) 0.32 x10^3/uL; BANDS%(MANUAL) 3 % (0-7); LYMPH#(MANUAL) 0.95 x10^3/uL (1-3.4); LYMPHS% (MANUAL) 9 % (22-44); METAMYELOCYTES# (MANUAL) 0.11 x10^3/uL (0-0); METAMYELOCYTES% (MANUAL) 1 % (0-1); MONOS#(MANUAL) 0.42 x10^3/uL (0.3-2.7); MONOS% (MANUAL) 4 % (2-9); MYELOCYTES# (MANUAL) 0.11 x10^3/uL (0-0); MYELOCYTES% (MANUAL) 1 % (0-0); SEG#(MANUAL) 8.61 x10^3/uL (1.8-6.8); SEGS% (MANUAL) 82 % (42-75)
[2019-08-29 06:09] LABS: <PLATELET ESTIMATE> ADEQUATE; <PLT MORPHOLOGY> NORMAL PLT MORPH; ANISOCYTOSIS 1+; POLYCHROMASIA 1+; TOXIC GRAN 1+
[2019-08-29] MEDS: ALBUTEROL/IPRATROPIUM 2.5MG/0.5MG, 3 ML INLINE PRN (07:15)
[2019-08-29] MEDS: FUROSEMIDE 40 MG/4 ML IV SCH (09:00)
[2019-08-29] MEDS ORDERED: INSULIN GLARGINE 100 UNITS/ML, PEN SQ-INSULIN SCH ×2 (09:00→21:00)
[2019-08-29] MEDS: PANTOPRAZOLE 40 MG IV IVPush SCH (09:00)
[2019-08-29] MEDS: SODIUM CHLORIDE FLUSH 10ML SYR IVF SCH ×2 (09:01→21:42)
[2019-08-29] MEDS: [UNRECOGNIZED DRUG - OTHER] SQ-INSULIN SCH ×3 (09:02→21:00)
[2019-08-29] MEDS: MICAFUNGIN 100 MG in SODIUM CHLORIDE 0.9% 100 ML IV SCH (10:12)
[2019-08-29] MEDS: ENOXAPARIN 40 MG/0.4 ML SQ SCH (10:14)
[2019-08-29] MEDS: ALBUTEROL/IPRATROPIUM 2.5MG/0.5MG, 3 ML NPPB SCH ×4 (11:00→22:11)
[2019-08-29] MEDS ORDERED: MCT IV SCH (17:00)
[2019-08-29] MEDS ORDERED: [UNRECOGNIZED DRUG - OTHER] IV SCH (17:00)
[2019-08-29] MEDS ORDERED: SOY IV SCH (17:00)
[2019-08-29] MEDS ORDERED: DEXTROSE 70% IV SCH (17:00)
[2019-08-29] MEDS ORDERED: AMINO ACID 10% IV SCH (17:00)
[2019-08-29] MEDS ORDERED: OLIV IV SCH (17:00)
[2019-08-29] MEDS ORDERED: FILTER, DISP 1.2 MICRON FOR TPN/PVN IV PRN (17:00)
[2019-08-29] MEDS ORDERED: FAT EMUL IV SCH (17:00)
[2019-08-29] MEDS ORDERED: FISH OIL IV SCH (17:00)
[2019-08-30] MEDS: PIPERACILLIN/TAZO/PMX 4.5GM 100 ML IV SCH ×3 (00:55→16:44)
[2019-08-30] MEDS: ALBUTEROL/IPRATROPIUM 2.5MG/0.5MG, 3 ML NPPB SCH ×6 (02:17→22:46)
[2019-08-30] MEDS: [UNRECOGNIZED DRUG - OTHER] SQ-INSULIN SCH ×3 (02:48→16:44)
[2019-08-30] MEDS: ACETAMINOPHEN 650 MG SUPP PR PRN ×2 (05:02→11:54)
[2019-08-30 05:24] LABS: MEAN CORPUSCULAR HEMOGLOBIN 29.2 pg (27.5-34.5); MEAN CORPUSCULAR HGB CONC 32.9 g/dL (33.2-36.2); MEAN CORPUSCULAR VOLUME 88.7 fL (81-97); MEAN PLATELET VOLUME 8.8 fL (7.4-10.4); PLATELET COUNT 315 x10^3/uL (130-400); RED CELL DISTRIBUTION WIDTH 17.4 % (9.4-14.8)
[2019-08-30 05:27] LABS: ANION GAP 3 mmol/L (5-15); CALCIUM 9.6 mg/dL (8.5-10.1); CHLORIDE 108 mmol/L (98-107); CREATININE 0.64 mg/dL (0.7-1.3)
[2019-08-30 06:06] LABS: MD YES
[2019-08-30 06:08] LABS: <PLATELET ESTIMATE> ADEQUATE; <PLT MORPHOLOGY> NORMAL PLT MORPH; ANISOCYTOSIS 1+; BAND#(MANUAL) 0.22 x10^3/uL; BANDS%(MANUAL) 2 % (0-7); BASOS#(MANUAL) 0.11 x10^3/uL (0-0.1); BASOS% (MANUAL) 1 % (0-1); LYMPH#(MANUAL) 1.11 x10^3/uL (1-3.4); LYMPHS% (MANUAL) 10 % (22-44); METAMYELOCYTES# (MANUAL) 0.11 x10^3/uL (0-0); METAMYELOCYTES% (MANUAL) 1 % (0-1); MONOS#(MANUAL) 0.56 x10^3/uL (0.3-2.7); MONOS% (MANUAL) 5 % (2-9); POLYCHROMASIA 1+; SEG#(MANUAL) 8.99 x10^3/uL (1.8-6.8); SEGS% (MANUAL) 81 % (42-75)
[2019-08-30 06:09] LABS: TOXIC GRAN 1+
[2019-08-30] MEDS ORDERED: PLEASE ENTER HEIGHT AND WEIGHT MC SCH (08:00)
[2019-08-30] MEDS: PANTOPRAZOLE 40 MG IV IVPush SCH (09:16)
[2019-08-30] MEDS: SODIUM CHLORIDE FLUSH 10ML SYR IVF SCH ×2 (09:17→21:23)
[2019-08-30] MEDS: ENOXAPARIN 40 MG/0.4 ML SQ SCH (09:17)
[2019-08-30] MEDS: INSULIN GLARGINE 100 UNITS/ML, PEN SQ-INSULIN SCH (09:55)
[2019-08-30] MEDS: MICAFUNGIN 100 MG in SODIUM CHLORIDE 0.9% 100 ML IV SCH (10:36)
[2019-08-30] MEDS ORDERED: MCT IV SCH (17:00)
[2019-08-30] MEDS ORDERED: AMINO ACID 10% IV SCH (17:00)
[2019-08-30] MEDS ORDERED: OLIV IV SCH (17:00)
[2019-08-30] MEDS ORDERED: FISH OIL IV SCH (17:00)
[2019-08-30] MEDS ORDERED: DEXTROSE 70% IV SCH (17:00)
[2019-08-30] MEDS ORDERED: [UNRECOGNIZED DRUG - OTHER] IV SCH (17:00)
[2019-08-30] MEDS ORDERED: FAT EMUL IV SCH (17:00)
[2019-08-30] MEDS ORDERED: SOY IV SCH (17:00)
[2019-08-30] MEDS: HYDROmorphone 2 MG/ML, 1ML IVPush PRN (20:51)
[2019-08-30] MEDS: METHYLNALTREXONE 12 MG/0.6 ML SYR SQ SCH (21:00)
[2019-08-31] MEDS: PIPERACILLIN/TAZO/PMX 4.5GM 100 ML IV SCH ×3 (01:56→16:57)
[2019-08-31] MEDS: [UNRECOGNIZED DRUG - OTHER] SQ-INSULIN SCH ×3 (02:03→16:58)
[2019-08-31] MEDS: ALBUTEROL/IPRATROPIUM 2.5MG/0.5MG, 3 ML NPPB SCH ×6 (02:24→22:28)
[2019-08-31 05:23] LABS: ANION GAP 6 mmol/L (5-15); CALCIUM 9.2 mg/dL (8.5-10.1); CHLORIDE 113 mmol/L (98-107); CREATININE 0.54 mg/dL (0.7-1.3)
[2019-08-31 05:29] LABS: BASOPHILS # (AUTO) 0.02 x10^3/uL (0-0.1); BASOPHILS % (AUTO) 0 % (0-1); EOSINOPHILS # (AUTO) 0.02 x10^3/uL (0-0.4); EOSINOPHILS % (AUTO) 0 % (1-7); LYMPHOCYTES # (AUTO) 0.71 x10^3/uL (1-3.4); LYMPHOCYTES % (AUTO) 9 % (22-44); MD NO; MEAN CORPUSCULAR HEMOGLOBIN 29.5 pg (27.5-34.5); MEAN CORPUSCULAR HGB CONC 33.1 g/dL (33.2-36.2); MEAN CORPUSCULAR VOLUME 89.1 fL (81-97); MEAN PLATELET VOLUME 8.7 fL (7.4-10.4); MONOCYTES # (AUTO) 0.47 x10^3/uL (0.2-0.8); MONOCYTES % (AUTO) 6 % (2-9); NEUTROPHILS # (AUTO) 6.95 x10^3/uL (1.8-6.8); NEUTROPHILS % (AUTO) 85 % (42-75); PLATELET COUNT 263 x10^3/uL (130-400); RED BLOOD COUNT 3.12 x10^6/uL (4.38-5.82); RED CELL DISTRIBUTION WIDTH 17.3 % (9.4-14.8)
[2019-08-31] MEDS: PANTOPRAZOLE 40 MG IV IVPush SCH ×2 (08:25→21:11)
[2019-08-31] MEDS: ENOXAPARIN 40 MG/0.4 ML SQ SCH (08:25)
[2019-08-31] MEDS: SODIUM CHLORIDE FLUSH 10ML SYR IVF SCH ×2 (08:26→21:11)
[2019-08-31] MEDS: INSULIN GLARGINE 100 UNITS/ML, PEN SQ-INSULIN SCH (08:26)
[2019-08-31] MEDS: MICAFUNGIN 100 MG in SODIUM CHLORIDE 0.9% 100 ML IV SCH (10:39)
[2019-08-31] MEDS ORDERED: MCT IV SCH ×3 (15:00→17:00)
[2019-08-31] MEDS ORDERED: FAT EMUL IV SCH ×3 (15:00→17:00)
[2019-08-31] MEDS ORDERED: AMINO ACID 10% IV SCH ×3 (15:00→17:00)
[2019-08-31] MEDS ORDERED: SOY IV SCH ×3 (15:00→17:00)
[2019-08-31] MEDS ORDERED: OLIV IV SCH ×3 (15:00→17:00)
[2019-08-31] MEDS ORDERED: [UNRECOGNIZED DRUG - OTHER] IV SCH ×3 (15:00→17:00)
[2019-08-31] MEDS ORDERED: FISH OIL IV SCH ×3 (15:00→17:00)
[2019-08-31] MEDS ORDERED: DEXTROSE 70% IV SCH ×3 (15:00→17:00)
[2019-08-31] MEDS: FILTER, DISP 1.2 MICRON FOR TPN/PVN IV PRN (17:40)
[2019-08-31] MEDS: ONDANSETRON 2MG/ML, 2ML IVPush PRN (18:14)
[2019-09-01] MEDS: PIPERACILLIN/TAZO/PMX 4.5GM 100 ML IV SCH ×3 (00:42→16:45)
[2019-09-01] MEDS: ALBUTEROL/IPRATROPIUM 2.5MG/0.5MG, 3 ML NPPB SCH ×6 (02:14→23:58)
[2019-09-01 02:29] LABS: MEAN CORPUSCULAR HEMOGLOBIN 28.7 pg (27.5-34.5); MEAN CORPUSCULAR HGB CONC 32.7 g/dL (33.2-36.2); MEAN CORPUSCULAR VOLUME 87.8 fL (81-97); MEAN PLATELET VOLUME 9.1 fL (7.4-10.4); PLATELET COUNT 307 x10^3/uL (130-400); RED BLOOD COUNT 3.27 x10^6/uL (4.38-5.82); RED CELL DISTRIBUTION WIDTH 17.5 % (9.4-14.8)
[2019-09-01] MEDS: [UNRECOGNIZED DRUG - OTHER] SQ-INSULIN SCH ×3 (02:29→16:53)
[2019-09-01 02:40] LABS: ANION GAP 5 mmol/L (5-15); CALCIUM 9.6 mg/dL (8.5-10.1); CHLORIDE 110 mmol/L (98-107)
[2019-09-01] MEDS: ZIPRASIDONE 20 MG INJ IM PRN ×2 (02:41→21:22)
[2019-09-01 02:43] LABS: CREATININE 0.59 mg/dL (0.7-1.3); TRIGLYCERIDES 187 mg/dL (50-200)
[2019-09-01 02:50] LABS: BASOPHILS # (AUTO) 0.06 x10^3/uL (0-0.1); BASOPHILS % (AUTO) 1 % (0-1); EOSINOPHILS # (AUTO) 0.15 x10^3/uL (0-0.4); EOSINOPHILS % (AUTO) 1 % (1-7); LYMPHOCYTES # (AUTO) 1.07 x10^3/uL (1-3.4); LYMPHOCYTES % (AUTO) 9 % (22-44); MD SCAN; MONOCYTES # (AUTO) 0.48 x10^3/uL (0.2-0.8); MONOCYTES % (AUTO) 4 % (2-9); NEUTROPHILS # (AUTO) 9.63 x10^3/uL (1.8-6.8); NEUTROPHILS % (AUTO) 85 % (42-75)
[2019-09-01] MEDS: PANTOPRAZOLE 40 MG IV IVPush SCH ×2 (08:58→20:36)
[2019-09-01] MEDS: INSULIN GLARGINE 100 UNITS/ML, PEN SQ-INSULIN SCH (08:59)
[2019-09-01] MEDS: SODIUM CHLORIDE FLUSH 10ML SYR IVF SCH ×2 (08:59→20:40)
[2019-09-01] MEDS: MICAFUNGIN 100 MG in SODIUM CHLORIDE 0.9% 100 ML IV SCH (10:20)
[2019-09-01] MEDS ORDERED: PVN PER PHARMACY MC PRN (13:00)
[2019-09-01] MEDS ORDERED: [UNRECOGNIZED DRUG - OTHER] IV SCH (17:00)
[2019-09-01] MEDS ORDERED: AMINO ACID 10% IV SCH ×3 (17:00)
[2019-09-01] MEDS ORDERED: FAT EMUL IV SCH ×3 (17:00)
[2019-09-01] MEDS ORDERED: MCT IV SCH ×3 (17:00)
[2019-09-01] MEDS ORDERED: FISH OIL IV SCH ×3 (17:00)
[2019-09-01] MEDS ORDERED: [UNRECOGNIZED DRUG - OTHER] IV SCH ×2 (17:00)
[2019-09-01] MEDS ORDERED: OLIV IV SCH ×3 (17:00)
[2019-09-01] MEDS ORDERED: SOY IV SCH ×3 (17:00)
[2019-09-01] MEDS ORDERED: DEXTROSE 70% IV SCH ×3 (17:00)
[2019-09-01] MEDS: FILTER, DISP 1.2 MICRON FOR TPN/PVN IV PRN (17:46)
[2019-09-01] MEDS: METHYLNALTREXONE 12 MG/0.6 ML SYR SQ SCH (20:36)
[2019-09-02] MEDS: PIPERACILLIN/TAZO/PMX 4.5GM 100 ML IV SCH ×3 (00:45→17:36)
[2019-09-02] MEDS: [UNRECOGNIZED DRUG - OTHER] SQ-INSULIN SCH ×3 (00:49→17:36)
[2019-09-02] MEDS: ALBUTEROL/IPRATROPIUM 2.5MG/0.5MG, 3 ML NPPB SCH ×6 (02:50→23:00)
[2019-09-02 04:58] LABS: BASOPHILS # (AUTO) 0.06 x10^3/uL (0-0.1); BASOPHILS % (AUTO) 1 % (0-1); EOSINOPHILS # (AUTO) 0.08 x10^3/uL (0-0.4); EOSINOPHILS % (AUTO) 1 % (1-7); LYMPHOCYTES % (AUTO) 9 % (22-44); MD NO; MEAN CORPUSCULAR HEMOGLOBIN 28.5 pg (27.5-34.5); MEAN CORPUSCULAR HGB CONC 32.7 g/dL (33.2-36.2); MEAN PLATELET VOLUME 8.8 fL (7.4-10.4); MONOCYTES # (AUTO) 0.45 x10^3/uL (0.2-0.8); MONOCYTES % (AUTO) 5 % (2-9); NEUTROPHILS # (AUTO) 8.02 x10^3/uL (1.8-6.8); NEUTROPHILS % (AUTO) 84 % (42-75); PLATELET COUNT 330 x10^3/uL (130-400); RED BLOOD COUNT 3.22 x10^6/uL (4.38-5.82); RED CELL DISTRIBUTION WIDTH 17.8 % (9.4-14.8)
[2019-09-02 05:10] LABS: ANION GAP 4 mmol/L (5-15); CALCIUM 9.2 mg/dL (8.5-10.1); CHLORIDE 105 mmol/L (98-107); CREATININE 0.63 mg/dL (0.7-1.3); TRIGLYCERIDES 162 mg/dL (50-200)
[2019-09-02 05:14] LABS: PREALBUMIN 20.7 mg/dL (20.0-40.0)
[2019-09-02] MEDS: PANTOPRAZOLE 40 MG IV IVPush SCH ×2 (08:57→20:48)
[2019-09-02] MEDS: INSULIN GLARGINE 100 UNITS/ML, PEN SQ-INSULIN SCH (08:58)
[2019-09-02] MEDS: SODIUM CHLORIDE FLUSH 10ML SYR IVF SCH ×2 (08:58→20:48)
[2019-09-02] MEDS: MICAFUNGIN 100 MG in SODIUM CHLORIDE 0.9% 100 ML IV SCH (10:28)
[2019-09-02] MEDS ORDERED: [UNRECOGNIZED DRUG - OTHER] IV SCH (17:00)
[2019-09-02] MEDS ORDERED: FAT EMUL IV SCH (17:00)
[2019-09-02] MEDS ORDERED: AMINO ACID 10% IV SCH (17:00)
[2019-09-02] MEDS ORDERED: OLIV IV SCH (17:00)
[2019-09-02] MEDS ORDERED: MCT IV SCH (17:00)
[2019-09-02] MEDS ORDERED: SOY IV SCH (17:00)
[2019-09-02] MEDS ORDERED: DEXTROSE 70% IV SCH (17:00)
[2019-09-02] MEDS ORDERED: FISH OIL IV SCH (17:00)
[2019-09-02] MEDS: FILTER, DISP 1.2 MICRON FOR TPN/PVN IV PRN (17:39)
[2019-09-03] MEDS: [UNRECOGNIZED DRUG - OTHER] SQ-INSULIN SCH ×3 (01:00→16:58)
[2019-09-03] MEDS: PIPERACILLIN/TAZO/PMX 4.5GM 100 ML IV SCH ×3 (01:18→16:56)
[2019-09-03] MEDS: ALBUTEROL/IPRATROPIUM 2.5MG/0.5MG, 3 ML NPPB SCH ×6 (03:00→22:42)
[2019-09-03 04:40] LABS: BASOPHILS # (AUTO) 0.03 x10^3/uL (0-0.1); BASOPHILS % (AUTO) 0 % (0-1); EOSINOPHILS # (AUTO) 0.05 x10^3/uL (0-0.4); EOSINOPHILS % (AUTO) 1 % (1-7); LYMPHOCYTES # (AUTO) 0.88 x10^3/uL (1-3.4); LYMPHOCYTES % (AUTO) 8 % (22-44); MD NO; MEAN CORPUSCULAR HEMOGLOBIN 28.5 pg (27.5-34.5); MEAN CORPUSCULAR HGB CONC 32.7 g/dL (33.2-36.2); MEAN CORPUSCULAR VOLUME 87.1 fL (81-97); MEAN PLATELET VOLUME 9.1 fL (7.4-10.4); MONOCYTES # (AUTO) 0.49 x10^3/uL (0.2-0.8); MONOCYTES % (AUTO) 5 % (2-9); NEUTROPHILS # (AUTO) 9.07 x10^3/uL (1.8-6.8); NEUTROPHILS % (AUTO) 86 % (42-75); PLATELET COUNT 384 x10^3/uL (130-400); RED BLOOD COUNT 3.56 x10^6/uL (4.38-5.82); RED CELL DISTRIBUTION WIDTH 17.4 % (9.4-14.8)
[2019-09-03 04:52] LABS: ANION GAP 7 mmol/L (5-15); CALCIUM 9.5 mg/dL (8.5-10.1); CHLORIDE 102 mmol/L (98-107)
[2019-09-03 04:54] LABS: CREATININE 0.68 mg/dL (0.7-1.3)
[2019-09-03] MEDS: SODIUM CHLORIDE FLUSH 10ML SYR IVF SCH ×2 (09:14→20:57)
[2019-09-03] MEDS: INSULIN GLARGINE 100 UNITS/ML, PEN SQ-INSULIN SCH (09:14)
[2019-09-03] MEDS: PANTOPRAZOLE 40 MG IV IVPush SCH ×2 (09:14→20:56)
[2019-09-03] MEDS: MICAFUNGIN 100 MG in SODIUM CHLORIDE 0.9% 100 ML IV SCH (10:14)
[2019-09-03] MEDS: FILTER, DISP 1.2 MICRON FOR TPN/PVN IV PRN (16:59)
[2019-09-03] MEDS ORDERED: SOY IV SCH (17:00)
[2019-09-03] MEDS ORDERED: AMINO ACID 10% IV SCH (17:00)
[2019-09-03] MEDS ORDERED: OLIV IV SCH (17:00)
[2019-09-03] MEDS ORDERED: DEXTROSE 70% IV SCH (17:00)
[2019-09-03] MEDS ORDERED: FAT EMUL IV SCH (17:00)
[2019-09-03] MEDS ORDERED: FISH OIL IV SCH (17:00)
[2019-09-03] MEDS ORDERED: [UNRECOGNIZED DRUG - OTHER] IV SCH (17:00)
[2019-09-03] MEDS ORDERED: MCT IV SCH (17:00)
[2019-09-03] MEDS: METHYLNALTREXONE 12 MG/0.6 ML SYR SQ SCH (20:56)
[2019-09-03] MEDS: ZIPRASIDONE 20 MG INJ IM PRN (23:16)
[2019-09-04] MEDS: PIPERACILLIN/TAZO/PMX 4.5GM 100 ML IV SCH ×3 (00:44→16:53)
[2019-09-04] MEDS: [UNRECOGNIZED DRUG - OTHER] SQ-INSULIN SCH ×3 (01:02→16:28)
[2019-09-04] MEDS: ALBUTEROL/IPRATROPIUM 2.5MG/0.5MG, 3 ML NPPB SCH ×6 (02:23→22:39)
[2019-09-04 04:50] LABS: BASOPHILS # (AUTO) 0.02 x10^3/uL (0-0.1); BASOPHILS % (AUTO) 0 % (0-1); EOSINOPHILS # (AUTO) 0.07 x10^3/uL (0-0.4); EOSINOPHILS % (AUTO) 1 % (1-7); LYMPHOCYTES # (AUTO) 0.85 x10^3/uL (1-3.4); LYMPHOCYTES % (AUTO) 8 % (22-44); MD NO; MEAN CORPUSCULAR HEMOGLOBIN 28.5 pg (27.5-34.5); MEAN CORPUSCULAR HGB CONC 32.9 g/dL (33.2-36.2); MEAN CORPUSCULAR VOLUME 86.4 fL (81-97); MEAN PLATELET VOLUME 9.1 fL (7.4-10.4); MONOCYTES # (AUTO) 0.71 x10^3/uL (0.2-0.8); MONOCYTES % (AUTO) 7 % (2-9); NEUTROPHILS % (AUTO) 84 % (42-75); PLATELET COUNT 395 x10^3/uL (130-400); RED BLOOD COUNT 3.48 x10^6/uL (4.38-5.82); RED CELL DISTRIBUTION WIDTH 17.6 % (9.4-14.8)
[2019-09-04 04:56] LABS: ANION GAP 7 mmol/L (5-15); CALCIUM 9.5 mg/dL (8.5-10.1); CHLORIDE 103 mmol/L (98-107); CREATININE 0.64 mg/dL (0.7-1.3)
[2019-09-04] MEDS: SODIUM CHLORIDE FLUSH 10ML SYR IVF SCH ×2 (09:10→21:55)
[2019-09-04] MEDS: PANTOPRAZOLE 40 MG IV IVPush SCH ×2 (09:10→21:55)
[2019-09-04] MEDS: INSULIN GLARGINE 100 UNITS/ML, PEN SQ-INSULIN SCH (09:11)
[2019-09-04] MEDS: MICAFUNGIN 100 MG in SODIUM CHLORIDE 0.9% 100 ML IV SCH (10:05)
[2019-09-04] MEDS: FILTER, DISP 1.2 MICRON FOR TPN/PVN IV PRN (16:53)
[2019-09-04] MEDS ORDERED: FAT EMUL IV SCH (17:00)
[2019-09-04] MEDS ORDERED: SOY IV SCH (17:00)
[2019-09-04] MEDS ORDERED: [UNRECOGNIZED DRUG - OTHER] IV SCH (17:00)
[2019-09-04] MEDS ORDERED: OLIV IV SCH (17:00)
[2019-09-04] MEDS ORDERED: FISH OIL IV SCH (17:00)
[2019-09-04] MEDS ORDERED: MCT IV SCH (17:00)
[2019-09-04] MEDS ORDERED: DEXTROSE 70% IV SCH (17:00)
[2019-09-04] MEDS ORDERED: AMINO ACID 10% IV SCH (17:00)
[2019-09-05] MEDS: [UNRECOGNIZED DRUG - OTHER] SQ-INSULIN SCH ×2 (00:30→09:00)
[2019-09-05] MEDS: PIPERACILLIN/TAZO/PMX 4.5GM 100 ML IV SCH (00:30)
[2019-09-05] MEDS: ALBUTEROL/IPRATROPIUM 2.5MG/0.5MG, 3 ML NPPB SCH ×4 (02:15→14:50)
[2019-09-05 04:16] LABS: BASOPHILS # (AUTO) 0.01 x10^3/uL (0-0.1); BASOPHILS % (AUTO) 0 % (0-1); EOSINOPHILS # (AUTO) 0.07 x10^3/uL (0-0.4); EOSINOPHILS % (AUTO) 1 % (1-7); LYMPHOCYTES # (AUTO) 0.73 x10^3/uL (1-3.4); LYMPHOCYTES % (AUTO) 8 % (22-44); MD NO; MEAN CORPUSCULAR HEMOGLOBIN 28.4 pg (27.5-34.5); MEAN CORPUSCULAR HGB CONC 32.7 g/dL (33.2-36.2); MEAN CORPUSCULAR VOLUME 86.9 fL (81-97); MEAN PLATELET VOLUME 8.9 fL (7.4-10.4); MONOCYTES # (AUTO) 0.46 x10^3/uL (0.2-0.8); MONOCYTES % (AUTO) 5 % (2-9); NEUTROPHILS # (AUTO) 7.52 x10^3/uL (1.8-6.8); NEUTROPHILS % (AUTO) 86 % (42-75); PLATELET COUNT 355 x10^3/uL (130-400); RED BLOOD COUNT 3.44 x10^6/uL (4.38-5.82); RED CELL DISTRIBUTION WIDTH 17.7 % (9.4-14.8)
[2019-09-05 04:28] LABS: ANION GAP 6 mmol/L (5-15); CALCIUM 9.6 mg/dL (8.5-10.1); CHLORIDE 102 mmol/L (98-107)
[2019-09-05] MEDS ORDERED: MEROPENEM 1 GM in SODIUM CHLORIDE 0.9% 100 ML IV SCH (08:00)
[2019-09-05] MEDS: PANTOPRAZOLE 40 MG IV IVPush SCH (09:11)
[2019-09-05] MEDS: SODIUM CHLORIDE FLUSH 10ML SYR IVF SCH (09:11)
[2019-09-05] MEDS: INSULIN GLARGINE 100 UNITS/ML, PEN SQ-INSULIN SCH (09:12)
[2019-09-05] MEDS: MICAFUNGIN 100 MG in SODIUM CHLORIDE 0.9% 100 ML IV SCH (09:13)
[2019-09-05] MEDS ORDERED: DEXTROSE 70% IV SCH (17:00)
[2019-09-05] MEDS ORDERED: MCT IV SCH (17:00)
[2019-09-05] MEDS ORDERED: OLIV IV SCH (17:00)
[2019-09-05] MEDS ORDERED: [UNRECOGNIZED DRUG - OTHER] IV SCH (17:00)
[2019-09-05] MEDS ORDERED: AMINO ACID 10% IV SCH (17:00)
[2019-09-05] MEDS ORDERED: FAT EMUL IV SCH (17:00)
[2019-09-05] MEDS ORDERED: SOY IV SCH (17:00)
[2019-09-05] MEDS ORDERED: FISH OIL IV SCH (17:00)
== END 2019-09-05 14:58 | disposition hospice, home (50) | DRG 3 ==
LOC: ED 05:17 → EDIP 07:02 → 4EST 09:50 → CCU 20:33 → 3N 07-26 10:26 → CCU 08-02 16:44
PROVIDERS: ADMIT Internal Medicine; ATTEND Internal Medicine
PROC: 0D9670Z Drainage of Stomach with Drainage Device, Via Natural or Artificial Opening (ICD-10-PCS; 2019-07-28)
PROC: 5A1955Z Respiratory Ventilation, Greater than 96 Consecutive Hours (ICD-10-PCS; principal; 2019-08-02)
PROC: 0BH17EZ Insertion of Endotracheal Airway into Trachea, Via Natural or Artificial Opening (ICD-10-PCS; 2019-08-02)
PROC: 02HV33Z Insertion of Infusion Device into Superior Vena Cava, Percutaneous Approach (ICD-10-PCS; 2019-08-03)
PROC: B548ZZA Ultrasonography of Superior Vena Cava, Guidance (ICD-10-PCS; 2019-08-03)
PROC: 0F9G30Z Drainage of Pancreas with Drainage Device, Percutaneous Approach (ICD-10-PCS; 2019-08-03)
PROC: 0T9B70Z Drainage of Bladder with Drainage Device, Via Natural or Artificial Opening (ICD-10-PCS; 2019-08-10)
PROC: 0B113F4 Bypass Trachea to Cutaneous with Tracheostomy Device, Percutaneous Approach (ICD-10-PCS; 2019-08-12)
PROC: 0WBH0ZZ Excision of Retroperitoneum, Open Approach (ICD-10-PCS; 2019-08-21)
PROC: 0DTU0ZZ Resection of Omentum, Open Approach (ICD-10-PCS; 2019-08-21)
PROC: 30233N1 Transfusion of Nonautologous Red Blood Cells into Peripheral Vein, Percutaneous Approach (ICD-10-PCS; 2019-08-21)
PROC: 0W9H00Z Drainage of Retroperitoneum with Drainage Device, Open Approach (ICD-10-PCS; 2019-08-22)
DX: A41.9 Sepsis, unspecified organism (principal); G92 Toxic encephalopathy; N17.0 Acute kidney failure with tubular necrosis; E43 Unspecified severe protein-calorie malnutrition; K63.1 Perforation of intestine (nontraumatic); K65.0 Generalized (acute) peritonitis; I81 Portal vein thrombosis; J18.9 Pneumonia, unspecified organism; K85.12 Biliary acute pancreatitis with infected necrosis; R65.21 Severe sepsis with septic shock; K92.1 Melena; B49 Unspecified mycosis; D62 Acute posthemorrhagic anemia; D68.69 Other thrombophilia; Z68.1 Body mass index [BMI] 19.9 or less, adult; E87.2 Acidosis; G62.81 Critical illness polyneuropathy; J90 Pleural effusion, not elsewhere classified; J98.11 Atelectasis; K56.7 Ileus, unspecified; R18.8 Other ascites; Z99.11 Dependence on respirator [ventilator] status; K86.3 Pseudocyst of pancreas; B96.1 Klebsiella pneumoniae [K. pneumoniae] as the cause of diseases classified elsewhere; D63.8 Anemia in other chronic diseases classified elsewhere; E11.9 Type 2 diabetes mellitus without complications; E83.52 Hypercalcemia; E83.51 Hypocalcemia; E86.0 Dehydration; F10.20 Alcohol dependence, uncomplicated; K21.9 Gastro-esophageal reflux disease without esophagitis; K22.70 Barrett's esophagus without dysplasia; K76.0 Fatty (change of) liver, not elsewhere classified; K80.20 Calculus of gallbladder without cholecystitis without obstruction; N30.90 Cystitis, unspecified without hematuria; Z51.5 Encounter for palliative care; Z87.11 Personal history of peptic ulcer disease; Z87.891 Personal history of nicotine dependence
CPT/HCPCS: 31622; 36415; 36573; 36600; 49405; 49406; 71045; 74018; 74021; 74177; 74181; 74240; 74340; 75984; 75989; 76700; 80048; 80053; 80061; 80076; 80307; 81001; 82040; 82150; 82271; 82330; 82550; 82803; 82962; 83605; 83690; 83735; 83880; 84100; 84134; 84295; 84478; 84484; 85014; 85018; 85025; 85520; 85651; 86078; 86140; 86850; 86900; 86923; 87040; 87070; 87075; 87077; 87081; 87086; 87106; 87186; 87205; 88112; 88305; 88307; 93005; 93975; 93976; 94002; 94003; 94640; 94667; 94668; 94690; 96374; 96375; 96376; 99291; C1894; G0378; J0171; J0610; J0696; J0878; J1170; J1644; J1650; J1815; J1885; J1940; J2020; J2185; J2248; J2250; J2405; J2543; J2704; J3010; J3411; J3475; J3480; J3486; J7070; J7120; P9047; Q9967; 92523-GN; C1729; C1751; C1769; C9113; J0330; J0360; J1720; J2060; J2270; J2310; J2370; J3420; J3490; J7030; J7040; J7050; P9016; Q9968